=== PATIENT | male | born 1945 | race Caucasian/White ===

== ENCOUNTER → 2016-06-09 | Outpatient (CLI) | payer MEDICARE, OTHER ==
[2016-06-09 08:55] LABS: ABSOLUTE BASOPHILS # (AUTO) 0.1 10^3/uL (0.0-0.2); ABSOLUTE EOSINOPHILS # (AUTO) 0.3 10^3/uL (0.0-0.6); ABSOLUTE LYMPHOCYTES (AUTO) 1.1 10^3/uL (0.5-4.7); ABSOLUTE MONOCYTES (AUTO) 0.3 10^3/uL (0.1-1.4); ABSOLUTE NEUT (AUTO) 3.1 10^3/uL (1.7-8.2); BASOPHILS % (AUTO) 1.1 % (0-2); EOSINOPHILS % (AUTO) 6.5 % (0-6); HEMATOCRIT 35.2 % (37.9-51.0); HEMOGLOBIN 12.1 g/dL (13.5-17.0); HGB HCT DIFFERENCE 1.1; LYMPHOCYTES % (AUTO) 23.1 % (13-45); MEAN CORPUSCULAR HEMOGLOBIN 26.8 pg (27.0-33.4); MEAN CORPUSCULAR HGB CONC 34.5 g/dL (32.0-36.0); MEAN CORPUSCULAR VOLUME 78 fl (80-97); MONOCYTES % (AUTO) 5.3 % (3-13); RED BLOOD COUNT 4.52 10^6/uL (4.35-5.55); RED CELL DISTRIBUTION WIDTH 15.1 % (11.5-14.0); WHITE BLOOD COUNT 4.8 10^3/uL (4.0-10.5)
[2016-06-09 09:24] LABS: ANION GAP 14 (5-19); BLOOD UREA NITROGEN 17 mg/dL (7-20); CARBON DIOXIDE 29 mmol/L (22-30); CHLORIDE 99 mmol/L (98-107); CREATININE RESULT 1.72 mg/dL (0.52-1.25); GLUCOSE 214 mg/dL (75-110); POTASSIUM 3.9 mmol/L (3.6-5.0); SODIUM 141.5 mmol/L (137-145)
[2016-06-10 12:38] LABS: CREATININE URINE 90.6 mg/dL (Not Estab.); MICROALBUMIN URINE 247.7 ug/mL (Not Estab.)
== END ==
LOC: OD 07:56
PROVIDERS: ATTEND Internal Medicine Nephrology
DX: N18.3 Chronic kidney disease, stage 3 (moderate) (principal); R80.9 Proteinuria, unspecified; E55.9 Vitamin D deficiency, unspecified; D50.9 Iron deficiency anemia, unspecified
CPT/HCPCS: 36415; 80048; 82043; 82306; 82570; 82728; 83540; 83550; 85025

== ENCOUNTER 2016-08-30 18:58 | Emergency (ER) | payer MEDICARE, OTHER ==
--- NOTE | 2016-08-30 19:40 | ER Document Report ---
ED Neuro Symptoms/Deficit - General Chief Complaint: S/S of Possible Stroke Stated Complaint: POSSIBLE STROKE Time seen by provider: 19:30 Notes: Patient is a 70-year-old male that comes emergency department for chief complaint of possible strokelike symptoms. He states that 1830 for a few minutes he states he felt like he was having confusion like something was off, he states that he tried reciting the alphabet and got stuck when he reached D, he states he tried this several times with the same result. He denies any focal weakness or numbness, he denies any visual changes, he denies any other symptoms including chest pain, shortness of breath, dizziness, fever, pain. He states that after several minutes the sensation resolved and he started feeling normal again. Patient reports he had a stroke 10 years ago with no chronic deficits. Past medical history of type II diabetes, hyperlipidemia, hypertension. Patient is not on a blood thinner. TRAVEL OUTSIDE OF THE [place] IN LAST 30 DAYS: No - Related Data Allergies/Adverse Reactions: cyclobenzaprine HCl [From Flexeril] Allergy (Verified 09/14/15 08:56) angio edema Zoavxrv-Xdb-Ydi Reductase Inhibitor Allergy (Verified 09/14/15 08:56) intense muscle pain Sulfa (Sulfonamide Antibiotics) Allergy (Verified 09/14/15 08:56) rash Past Medical History - General Information source: Patient - Social History Smoking Status: Never Smoker Frequency of alcohol use: None Lives with: Alone Family History: Reviewed & Not Pertinent Patient has suicidal ideation: No Patient has homicidal ideation: No - Past Medical History Cardiac Medical History: Reports: Hx Hypercholesterolemia, Hx Hypertension Denies: Hx Coronary Artery Disease, Hx Heart Attack Pulmonary Medical History: Denies: Hx Asthma, Hx Bronchitis, Hx COPD, Hx Pneumonia Neurological Medical History: Denies: Hx Cerebrovascular Accident, Hx Seizures Endocrine Medical History: Reports: Hx Diabetes Mellitus Type 2 Renal/ Medical History: Reports: Hx Kidney Stones. Denies: Hx Peritoneal Dialysis GI Medical History: Denies: Hx Hepatitis, Hx Hiatal Hernia, Hx Ulcer Musculoskeltal Medical History: Reports Hx Arthritis Infectious Medical History: Denies: Hx Hepatitis Past Surgical History: Reports: Hx Orthopedic Surgery, Hx Tonsillectomy. Denies : Hx Open Heart Surgery, Hx Pacemaker - Immunizations Hx Diphtheria, Pertussis, Tetanus Vaccination: Yes Hx Pneumococcal Vaccination: 01/31/15 Review of Systems - Review of Systems Constitutional: No symptoms reported EENT: No symptoms reported Cardiovascular: No symptoms reported Respiratory: No symptoms reported Gastrointestinal: No symptoms reported Genitourinary: No symptoms reported Male Genitourinary: No symptoms reported Musculoskeletal: No symptoms reported Skin: No symptoms reported Hematologic/Lymphatic: No symptoms reported Neurological/Psychological: See HPI Physical Exam - Vital signs Vitals: Temp Pulse Resp BP Pulse Ox 98.6 F 83 21 H 174/75 H 97 08/30/16 19:13 08/30/16 19:13 08/30/16 19:13 08/30/16 19:13 08/30/16 19:13 Interpretation: Normal - General General appearance: Appears well, Alert In distress: None - HEENT Head: Normocephalic, Atraumatic Eyes: Normal Conjunctiva: Normal Extraocular movements intact: Yes Eyelashes: Normal Pupils: PERRL Sinus: Normal Nasal: Normal Mouth/Lips: Normal Mucous membranes: Normal Pharynx: Normal Neck: Normal - Respiratory Respiratory status: No respiratory distress Chest status: Nontender Breath sounds: Normal Chest palpation: Normal - Cardiovascular Rhythm: Regular. No: Tachycardia Heart sounds: Normal auscultation, S1 appreciated, S2 appreciated Murmur: Yes - 05/08 - Abdominal Inspection: Normal Distension: No distension Bowel sounds: Normal Tenderness: Nontender. No: Tender, Guarding Organomegaly: No organomegaly - Back Back: Normal, Nontender. No: Tender - Extremities General upper extremity: Normal inspection, Nontender, Normal strength, Normal temperature General lower extremity: Normal inspection, Nontender, Normal strength, Normal temperature - Neurological Neuro grossly intact: Yes Cognition: Normal Orientation: AAOx4 [place] Coma Scale Eye Opening: Spontaneous Josiah Coma Scale Verbal: Oriented Josiah Coma Scale Motor: Obeys Commands Josiah Coma Scale Total: 15 Speech: Normal Motor strength normal: LUE, RUE, LLE, RLE Sensory: Normal - Psychological Associated symptoms: Normal affect, Normal mood - Skin Skin Temperature: Warm Skin Moisture: Dry Skin Color: Normal Course - Re-evaluation Re-evalutation: Patient presenting with neurological complaints that are vague, symptoms have completely resolved, CT of the head is normal in patient is within the timeframe but since he has no current symptoms he is not a TPA candidate. 08/30/16 EKG shows sinus rhythm with no atrial fibrillation. Chest x-ray, CAT scan unremarkable. CBC showing mild microcytic anemia, chemistry approximately baseline with chronic kidney disease. On reevaluation patient remains asymptomatic. I questioned patient about what he was doing again when symptoms started, he admits that he now thinks that he had fallen asleep, he murmurs being startled awake by light bulb that went out, and when he first awoke for the first few seconds" which felt longer but honestly might have been seconds" he felt these were very, strength sensation, and had the difficulty with the alphabet. Patient repeats that this resolved at least within minutes. Patient denies any other symptoms family and states he is sure this time that he has given me all of the information. Low suspicion of any acute abnormality including TIA. Even if patient had TIA, he is requesting to leave now after normal workup, he are he has a scheduled appointment within 2 days on Wednesday with his primary care provider, I asked him to discuss his symptoms to be included in his evaluations at that time. I also discussed in detail return precautions. Patient was discussed with Dr. Marquez. Patient states that he is calm now, feels relieved about the whole situation, states he understands return precautions and follow-up. - Vital Signs Vital signs: Temp Pulse Resp BP Pulse Ox 98.6 F 83 21 H 174/75 H 97 08/30/16 19:13 08/30/16 19:13 08/30/16 19:13 08/30/16 19:13 08/30/16 19:13 - Laboratory Result Diagrams: 08/30/16 19:40 08/30/16 19:40 ED NIH Stroke Scale - NIH Stroke Scale *: 1. NIH scale should be completed with appropriate accompanying assessment tools. *: 2. The NIH should reflect what the patient is capable of doing and should not be coached by the clinician. 1a. Level of Consciousness: 0=Alert;keenly responsive -: 1=Drowsy -: 2=Obtunded -: 3=Coma/unresponsive or reflex to noxious stimuli. 1a. Responses: 0 1b. Orientation Questions: a. What month is it? -: b. How old are you? -: 0=Answers both questions correctly. -: 1=Answers one question correctly or patient is intubated or has orotracheal trauma. -: 2=Answers neither question correctly. 1b. Responses: 0 1c. Response to commands: a. Open and close eyes? -: b. Truck Mechanic and release hand? -: Credit is given despite weakness. Demonstration of task is permitted. Substitute command if hands cannot be used. -: 0=Performs both tasks correctly -: 1=Performs one task correctly -: 2=Performs neither task correctly 1c. Responses: 0 2. Gaze: Establish eye contact and instruct patient to "Follow my finger" -: 0=Normal -: 1=Partial gaze palsy. Gaze is abnormal in one or both eyes, but where forced deviation or total gaze paresis is not present. -: 2=Forced deviation or total gaze paresis. 2. Responses: 0 3. Visual Wild: Sees fingers in all four quadrants. -: 0=No visual loss. -: 1=Partial hemianopsia. -: 2=Complete hemianopsia. -: 3=Bilateral hemianopsia (including Cortical blindness) 3. Responses: 0 4. Facial Movement: Instruct patient to: -: a. Show me your teeth -: b. Raise your eyebrows -: c. Close your eyes -: d. Smile -: 0=Normal symmetrical movement -: 1=Minor paralysis (flattened nasolabial fold, asymmetry on smiling). -: 2=Partial paralysis (total or near total paralysis of lower face). -: 3=Complete paralysis of upper and lower face 4. Responses: 0 5. Motor functions (left arm): Alternate sides and extend each arm with palms down (90 degrees if sitting or 45 degrees for supine). -: 0=No drift;limb holds for full 10 seconds. -: 1=Drift; limb holds but drifts down before full 10 seconds, but does not hit bed. -: 2=Some effort against gravity; limb cannot get to or maintain position. -: 3=No effort against gravity; limb falls. -: 4=No movement. -: UN=Amputation, joint fusion, explain in comments. 5. Responses (left arm): 0 5. Motor Functions (right arm): Alternate sides and extend each arm with palms down (90 degrees if sitting or 45 degrees for supine). -: 0=No drift;limb holds for full 10 seconds. -: 1=Drift; limb holds but drifts down before full 10 seconds, but does not hit bed. -: 2=Some effort against gravity; limb cannot get to or maintain position. -: 3=No effort against gravity; limb falls. -: 4=No movement. -: UN=Amputation, joint fusion, explain in comments. 5. Responses (right arm): 0 6. Motor Functions (left leg): With patient lying supine, alternate sides and extend each leg (30 degrees always while supine). -: 0=No drift, leg holds position for full 5 seconds -: 1=Drift; leg falls before full 5 seconds but does not hit bed. -: 2=Some effort against gravity, leg falls to bed but some effort against gravity. -: 3=No effort against gravity, leg falls to bed immediately. -: 4=No movement. -: UN=Amputation, joint fusion; explain in comments. 6. Responses (left leg): 0 6. Motor Functions (right leg): With patient lying supine, alternate sides and extend each leg (30 degrees always while supine). -: 0=No drift, leg holds position for full 5 seconds -: 1=Drift; leg falls before full 5 seconds but does not hit bed. -: 2=Some effort against gravity, leg falls to bed but some effort against gravity. -: 3=No effort against gravity, leg falls to bed immediately. -: 4=No movement. -: UN=Amputation, joint fusion; explain in comments. 6. Responses (right leg): 0 7. Limb Ataxia: With eyes open instruct patient to: -: a. "Touch your finger to your nose". -: b. "Touch your heel to your panda" -: 0=Absent -: 1=Present in one limb. -: 2=Present in two limbs. -: UN=Amputation or joint fusion; explain in comments. 7. Responses: 0 8. Sensory: Test sensation using pinprick or noxious stimuli. Test as many body parts as possible. -: 0=Normal;no sensory loss -: 1=Mile to moderate sensory loss (patient feels pin prick but is less sharp on affected side). -: 2=Severe or total sensory loss. 8. Responses: 0 9. Best Language: Instruct patient to: -: a. "Describe what you see in this picture." -: b. "Name the items in this picture." -: c. "Read these sentences." -: 0=No aphasia, normal -: 1=Mild to moderate aphasia. -: 2=Severe aphasia -: 3=Mute, global aphasia, no usable speech or auditory comprehension. 9. Responses: 0 10. Articulation, Dysarthia: Instruct patient to: -: "Read these words" or "Repeat these words" -: 0=Normal -: 1=Mild to moderate; patient may slur some words but can be understood without difficulty. -: 2=Severe; patients speech so slurred as to be unintelligible in the absence of dysphasia. -: UN=Intubated or other physical barrier, explain in comments. 10. Responses: 0 11. Extinction or inattention: 0=No abnormality -: 1= Visual, tactile, auditory, spatial, or personal inattention or extinction to bilateral simulation in one or the sensory modalities. -: 2=Profound lucita-inattention or lucita-inattention to more than one modality; does not recognize own hand. 11. Responses: 0 Total Score: 0 Discharge - Discharge Clinical Impression: Difficulty with speech Condition: Stable Disposition: HOME, SELF-CARE Additional Instructions: Symptoms are vague, occurred immediately upon awakening, and resolved almost immediately. This is nonspecific. Your examination and workup including neurological examination are normal. Continue aspirin, please perform your 2 day follow-up with her primary care provider for additional management. Return to the emergency department for any concerning symptoms including weakness, numbness, headache, chest pain, or any other concerning symptoms. Forms: Elevated Blood Pressure Referrals: DONAL HAGEN MD [Primary Care Provider] - Follow up as needed
[2016-08-30 19:53] LABS: ABSOLUTE BASOPHILS # (AUTO) 0.1 10^3/uL (0.0-0.2); ABSOLUTE EOSINOPHILS # (AUTO) 0.3 10^3/uL (0.0-0.6); ABSOLUTE LYMPHOCYTES (AUTO) 1.3 10^3/uL (0.5-4.7); ABSOLUTE MONOCYTES (AUTO) 0.2 10^3/uL (0.1-1.4); ABSOLUTE NEUT (AUTO) 3.3 10^3/uL (1.7-8.2); BASOPHILS % (AUTO) 1.1 % (0-2); EOSINOPHILS % (AUTO) 5.2 % (0-6); HEMATOCRIT 37.5 % (37.9-51.0); HEMOGLOBIN 12.9 g/dL (13.5-17.0); HGB HCT DIFFERENCE 1.2; LYMPHOCYTES % (AUTO) 25.6 % (13-45); MEAN CORPUSCULAR HEMOGLOBIN 26.7 pg (27.0-33.4); MEAN CORPUSCULAR HGB CONC 34.4 g/dL (32.0-36.0); MEAN CORPUSCULAR VOLUME 78 fl (80-97); MONOCYTES % (AUTO) 4.3 % (3-13); RED BLOOD COUNT 4.84 10^6/uL (4.35-5.55); SEGMENTED NEUTROPHILS % (AUTO) 63.8 % (42-78); WHITE BLOOD COUNT 5.2 10^3/uL (4.0-10.5)
[2016-08-30 20:02] LABS: PROTHROMBIN TIME 14.2 SEC (11.4-15.4)
[2016-08-30 20:15] LABS: ALANINE AMINOTRANSFERASE 43 U/L (21-72); ALBUMIN 4.4 g/dL (3.5-5.0); ALKALINE PHOSPHATASE 79 U/L (38-126); ANION GAP 16 (5-19); ASPARTATE AMINO TRANSFERASE 46 U/L (17-59); BILIRUBIN,DIRECT 0.4 mg/dL (0.0-0.4); BILIRUBIN,TOTAL 0.6 mg/dL (0.2-1.3); BLOOD UREA NITROGEN 15 mg/dL (7-20); CALCIUM 9.8 mg/dL (8.4-10.2); CARBON DIOXIDE 28 mmol/L (22-30); CHLORIDE 100 mmol/L (98-107); CREATINE KINASE 188 U/L (55-170); CREATININE RESULT 2.11 mg/dL (0.52-1.25); GLUCOSE 226 mg/dL (75-110); POTASSIUM 3.4 mmol/L (3.6-5.0); SODIUM 143.6 mmol/L (137-145); TOTAL PROTEIN 7.7 g/dL (6.3-8.2)
[2016-08-30 20:30] LABS: TROPONIN I < 0.012 ng/mL
[2016-08-30 21:17] VITALS: BP 146/80
--- NOTE | 2016-08-30 22:51 | EKG REPORT ---
SEVERITY:- ABNORMAL ECG - SINUS RHYTHM FIRST DEGREE AV BLOCK NONSPECIFIC INTRAVENTRICULAR CONDUCTION DELAY LVH : Confirmed by: Ramona Rogers 30-Aug-2016 22:50:21
== END 2016-08-30 21:19 | disposition home or self-care (01) ==
LOC: ER 18:58
DX: R47.9 Unspecified speech disturbances (principal); R41.0 Disorientation, unspecified; E11.9 Type 2 diabetes mellitus without complications; E78.00 Pure hypercholesterolemia, unspecified; I10 Essential (primary) hypertension; Z88.2 Allergy status to sulfonamides; Z87.442 Personal history of urinary calculi
CPT/HCPCS: 36415; 70450; 71010; 80053; 82550; 82553; 84484; 85025; 85610; 85730; 93005; 93010; 99285

== ENCOUNTER → 2016-10-07 | Outpatient (CLI) | payer MEDICARE, OTHER ==
[2016-10-07 08:05] LABS: ABSOLUTE BASOPHILS # (AUTO) 0.1 10^3/uL (0.0-0.2); ABSOLUTE EOSINOPHILS # (AUTO) 0.3 10^3/uL (0.0-0.6); ABSOLUTE LYMPHOCYTES (AUTO) 1.2 10^3/uL (0.5-4.7); ABSOLUTE MONOCYTES (AUTO) 0.2 10^3/uL (0.1-1.4); ABSOLUTE NEUT (AUTO) 3.2 10^3/uL (1.7-8.2); BASOPHILS % (AUTO) 1.3 % (0-2); HEMOGLOBIN 12.5 g/dL (13.5-17.0); HGB HCT DIFFERENCE 0.5; LYMPHOCYTES % (AUTO) 23.6 % (13-45); MEAN CORPUSCULAR HEMOGLOBIN 26.1 pg (27.0-33.4); MEAN CORPUSCULAR HGB CONC 33.8 g/dL (32.0-36.0); MEAN CORPUSCULAR VOLUME 77 fl (80-97); MONOCYTES % (AUTO) 4.9 % (3-13); RED BLOOD COUNT 4.79 10^6/uL (4.35-5.55); RED CELL DISTRIBUTION WIDTH 13.9 % (11.5-14.0); SEGMENTED NEUTROPHILS % (AUTO) 64.2 % (42-78); WHITE BLOOD COUNT 4.9 10^3/uL (4.0-10.5)
[2016-10-07 08:39] LABS: ANION GAP 12 (5-19); BLOOD UREA NITROGEN 13 mg/dL (7-20); CALCIUM 9.4 mg/dL (8.4-10.2); CARBON DIOXIDE 28 mmol/L (22-30); CHLORIDE 102 mmol/L (98-107); CREATININE RESULT 1.92 mg/dL (0.52-1.25); GLUCOSE 214 mg/dL (75-110); POTASSIUM 4.2 mmol/L (3.6-5.0)
[2016-10-08 11:40] LABS: CREATININE URINE 176.1 mg/dL (Not Estab.); MICROALBUMIN URINE 378.7 ug/mL (Not Estab.)
== END ==
LOC: OD 07:28
PROVIDERS: ATTEND Internal Medicine Nephrology
DX: N18.3 Chronic kidney disease, stage 3 (moderate) (principal); R80.1 Persistent proteinuria, unspecified; D63.1 Anemia in chronic kidney disease
CPT/HCPCS: 36415; 80048; 82043; 82570; 85025

== ENCOUNTER → 2017-02-08 | Outpatient (CLI) | payer MEDICARE, OTHER ==
[2017-02-08 08:43] LABS: ABSOLUTE BASOPHILS # (AUTO) 0.1 10^3/uL (0.0-0.2); ABSOLUTE EOSINOPHILS # (AUTO) 0.3 10^3/uL (0.0-0.6); ABSOLUTE LYMPHOCYTES (AUTO) 1.3 10^3/uL (0.5-4.7); ABSOLUTE MONOCYTES (AUTO) 0.3 10^3/uL (0.1-1.4); ABSOLUTE NEUT (AUTO) 3.5 10^3/uL (1.7-8.2); BASOPHILS % (AUTO) 1.1 % (0-2); EOSINOPHILS % (AUTO) 5.5 % (0-6); HEMATOCRIT 34.9 % (37.9-51.0); HEMOGLOBIN 12.3 g/dL (13.5-17.0); LYMPHOCYTES % (AUTO) 24.4 % (13-45); MEAN CORPUSCULAR HEMOGLOBIN 27.5 pg (27.0-33.4); MEAN CORPUSCULAR HGB CONC 35.2 g/dL (32.0-36.0); MEAN CORPUSCULAR VOLUME 78 fl (80-97); MONOCYTES % (AUTO) 4.6 % (3-13); RED BLOOD COUNT 4.45 10^6/uL (4.35-5.55); SEGMENTED NEUTROPHILS % (AUTO) 64.4 % (42-78); WHITE BLOOD COUNT 5.5 10^3/uL (4.0-10.5)
[2017-02-08 08:58] LABS: APPEARANCE,URINE CLEAR; BILIRUBIN,URINE NEGATIVE (NEGATIVE); GLUCOSE, URINE NEGATIVE (NEGATIVE); KETONES,URINE NEGATIVE (NEGATIVE); LEUKOCYTE ESTERASE,URINE NEGATIVE (NEGATIVE); NITRITE,URINE NEGATIVE (NEGATIVE); PROTEIN,URINE 100 mg/dL (NEGATIVE); URINE SPECIFIC GRAVITY 1.009; UROBILINOGEN,URINE NEGATIVE mg/dL (<2.0)
[2017-02-08 09:01] LABS: ALBUMIN 4.1 g/dL (3.5-5.0); ANION GAP 13 (5-19); BLOOD UREA NITROGEN 10 mg/dL (7-20); CALCIUM 9.5 mg/dL (8.4-10.2); CARBON DIOXIDE 30 mmol/L (22-30); CHLORIDE 103 mmol/L (98-107); CREATININE RESULT 1.75 mg/dL (0.52-1.25); GLUCOSE 144 mg/dL (75-110); POTASSIUM 3.4 mmol/L (3.6-5.0); SODIUM 146.1 mmol/L (137-145)
[2017-02-09 07:33] LABS: VITAMIN D 25-HYDROXY 19.5 ng/mL (30.0-100.0)
[2017-02-09 11:49] LABS: MICROALBUMIN URINE 535.6 ug/mL (Not Estab.)
== END ==
LOC: OD 07:53
PROVIDERS: ATTEND Internal Medicine Nephrology
DX: N18.3 Chronic kidney disease, stage 3 (moderate) (principal); R80.9 Proteinuria, unspecified; E55.9 Vitamin D deficiency, unspecified; D50.9 Iron deficiency anemia, unspecified
CPT/HCPCS: 36415; 80048; 81001; 82040; 82043; 82306; 82570; 82728; 83540; 83550; 83970; 84100; 85025

== ENCOUNTER 2017-04-20 07:15 | Day surgery (SDC) | payer MEDICARE, OTHER ==
[~2017-04-20 07:15] MED LIST: BUPIVACAINE HCL 0.75% INJ/PF (7.5 MG/1 ML) 10 ML SDV OD PRN; KETOROLAC TROMETHAMINE 0.45% 4 DROP/0.4 ML DROPERETTE OD PRN; LIDOCAINE 4% INJ/PF (40 MG/ML) 5 ML AMPUL OD PRN
[2017-04-20] MEDS ORDERED: CHONDR SU A NA/HYALUR INTRAOC KIT (SURGICARE) ONE (07:29)
[2017-04-20] MEDS ORDERED: PHENYLEPHRINE/KETOROLAC 1%-0.3% 4 ML VIAL ONE (07:29)
[2017-04-20] MEDS ORDERED: LIDOCAINE 1% INJ-PF (10 MG/ML) 30 ML SDV ONE (07:29)
[2017-04-20] MEDS: TETRACAINE HCL 0.5% OPH SOLN 0.6 ML DROPERETTE OD PRN ×2 (07:50→08:17)
[2017-04-20] MEDS: CYCLOPENTOLATE 0.2%/PHENYLEPHRINE 1% OPH SOLN 2 ML OD PRN ×3 (07:51→08:12)
[2017-04-20] MEDS: TROPICAMIDE 1% OPH SOLN 3 ML OD PRN ×3 (07:51→08:12)
[2017-04-20] MEDS: BESIFLOXACIN HCL 0.6% OPH SUSP 5 ML BOTTLE OD PRN ×3 (07:53→09:01)
[2017-04-20] MEDS ORDERED: FENTANYL CITRATE INJ/PF 100 MCG/2 ML AMPUL ONE (08:16)
[2017-04-20] MEDS ORDERED: MIDAZOLAM 2 MG/2 ML INJ ONE (08:16)
--- NOTE | 2017-04-20 09:11 | [facility] OPERATIVE REPORT E ---
[facility] Operative Report NAME: JARED NEGRETE AGE: 71Y DATE OF SURGERY: 04/20/2017 ROOM: PREOPERATIVE DIAGNOSIS: Cataract, right eye. POSTOPERATIVE DIAGNOSIS: Cataract, right eye. PROCEDURE PERFORMED: Phacoemulsification with posterior chamber intraocular lens, right eye. SURGEON: JEFF WOOTEN M.D. ANESTHESIA: Topical with MAC. INDICATIONS FOR SURGERY: Difficulty reading road signs and words on TV. Best corrected visual acuity 20/50. PROCEDURE: The patient was brought to the Operating Room and placed on the operative table. Following tetracaine drops, topical anesthesia was administered. This consisted of instrument wipe pledgets soaked in a solution of 4% Xylocaine mixed with 0.75% Marcaine in a 1:2 ratio. A 2 x 1 cm pledget was placed in the superior fornix. A 1 x 1 cm pledget was placed in the inferior fornix. The eye was patched shut for 5 minutes. The patch was removed. The eye was sterilely prepped and draped in the usual manner. Lid speculum was placed in the eye. The pledgets were removed. 4-0 black silk sutures were placed around the superior and the inferior rectus muscles to be used as traction. A conjunctival peritomy was made at the 10 o'clock position. Hemostasis was obtained with bipolar cautery. A posterior limbal groove was created using a crescent knife and dissected anteriorly towards the cornea. A sharp point blade was used to create a paracentesis site at the 2 o'clock position. A 2.4 mm keratome was used to enter the anterior chamber through the groove. Viscoelastic was injected into the anterior chamber. An anterior capsulotomy was performed using Utrata forceps in a capsulorrhexis fashion. Hydrodissection and hydrodelineation were performed. Phacoemulsification was performed in [id number] technique. A total of 56 seconds phaco time was used. Following this, the I/A unit was used to remove residual cortex. Viscoelastic was injected into the capsular bag. Intraocular lens model SN60WF, 20.0 diopters, serial number [id number] was placed in the capsular bag. The I/A unit was used to remove residual viscoelastic. The wound was seen to be watertight under high and low pressure, and no sutures were placed. The intraocular lens was well centered. The pressure was adjusted in the eye to normal pressure. The 4-0 black silk sutures and lid speculum were removed. The eye was shielded after Besivance drops were placed. The patient tolerated the procedure well and was sent to the Recovery Room in good condition. DICTATING PHYSICIAN: JEFF WOOTEN M.D. [id number] PHY#: [id number] ID: [id number] JOB#: [id number] ACCT: [id number] cc:JEFF WOOTEN M.D. >
--- NOTE | 2017-04-20 09:13 | [facility] DISCHARGE SUMMARY E ---
[facility] Discharge Summary NAME: JARED NEGRETE AGE: 71Y ADMITTED: 04/20/2017 DISCHARGED: 04/20/2017 HOSPITAL COURSE: The patient is a 71-year-old gentleman who underwent uneventful cataract extraction with intraocular lens implant, right eye, on 04/20/2017. He will be discharged to home. He is instructed to resume preoperative medications, take Tylenol as needed for discomfort, to keep his eye shielded, to use Besivance, Durezol, and Ilevro at 3 p.m. and 8 p.m., and to follow up in my office in 1 day. DICTATING PHYSICIAN: JEFF WOOTEN M.D. [id number] PHY#: [id number] ID: [id number] JOB#: [id number] ACCT: [id number] cc:JEFF WOOTEN M.D. >
== END 2017-04-20 09:48 | disposition home or self-care (01) ==
LOC: SC 07:15
PROVIDERS: ATTEND Ophthalmology
PROC: 08RJ3JZ Replacement of Right Lens with Synthetic Substitute, Percutaneous Approach (ICD-10-PCS; principal; 2017-04-20 08:30)
DX: H25.813 Combined forms of age-related cataract, bilateral (principal); H04.123 Dry eye syndrome of bilateral lacrimal glands; E11.9 Type 2 diabetes mellitus without complications; I10 Essential (primary) hypertension; M19.90 Unspecified osteoarthritis, unspecified site; M10.9 Gout, unspecified; N40.0 Benign prostatic hyperplasia without lower urinary tract symptoms; D64.9 Anemia, unspecified; K21.9 Gastro-esophageal reflux disease without esophagitis; Z86.73 Personal history of transient ischemic attack (TIA), and cerebral infarction without residual deficits; Z87.891 Personal history of nicotine dependence; Z85.828 Personal history of other malignant neoplasm of skin; Z88.2 Allergy status to sulfonamides; Z88.8 Allergy status to other drugs, medicaments and biological substances; Z79.899 Other long term (current) drug therapy; Z79.84 Long term (current) use of oral hypoglycemic drugs; Z79.4 Long term (current) use of insulin
CPT/HCPCS: 66984; 82962; V2632; J2250; J3490 ×4; A9270; J3010; C9447; 142

== ENCOUNTER → 2017-06-14 | Outpatient (CLI) | payer MEDICARE, OTHER ==
[2017-06-14 09:03] LABS: ABSOLUTE BASOPHILS # (AUTO) 0.1 10^3/uL (0.0-0.2); ABSOLUTE EOSINOPHILS # (AUTO) 0.4 10^3/uL (0.0-0.6); ABSOLUTE LYMPHOCYTES (AUTO) 1.4 10^3/uL (0.5-4.7); ABSOLUTE MONOCYTES (AUTO) 0.3 10^3/uL (0.1-1.4); ABSOLUTE NEUT (AUTO) 3.2 10^3/uL (1.7-8.2); BASOPHILS % (AUTO) 1.2 % (0-2); EOSINOPHILS % (AUTO) 7.1 % (0-6); HEMATOCRIT 34.1 % (37.9-51.0); LYMPHOCYTES % (AUTO) 25.7 % (13-45); MEAN CORPUSCULAR HEMOGLOBIN 27.3 pg (27.0-33.4); MEAN CORPUSCULAR HGB CONC 35.3 g/dL (32.0-36.0); MEAN CORPUSCULAR VOLUME 78 fl (80-97); MONOCYTES % (AUTO) 5.2 % (3-13); PLATELET COUNT 183 10^3/uL (150-450); RED BLOOD COUNT 4.39 10^6/uL (4.35-5.55); RED CELL DISTRIBUTION WIDTH 14.2 % (11.5-14.0); SEGMENTED NEUTROPHILS % (AUTO) 60.8 % (42-78); TOTAL CELLS COUNTED % (AUTO) 100 %; WHITE BLOOD COUNT 5.3 10^3/uL (4.0-10.5)
[2017-06-14 09:21] LABS: ANION GAP 9 (5-19); BLOOD UREA NITROGEN 10 mg/dL (7-20); CALCIUM 9.6 mg/dL (8.4-10.2); CARBON DIOXIDE 32 mmol/L (22-30); CHLORIDE 102 mmol/L (98-107); GLUCOSE 142 mg/dL (75-110); IRON(TIBC) 71.3 ug/dL (49-181); SODIUM 142.6 mmol/L (137-145)
[2017-06-15 13:39] LABS: CREATININE URINE 71.9 mg/dL (Not Estab.)
[2017-06-15 13:59] LABS: MICROALBUMIN URINE 1959.2 ug/mL (Not Estab.)
== END ==
LOC: OD 08:11
PROVIDERS: ATTEND Internal Medicine Nephrology
DX: N18.3 Chronic kidney disease, stage 3 (moderate) (principal); E11.29 Type 2 diabetes mellitus with other diabetic kidney complication; D50.9 Iron deficiency anemia, unspecified; E55.9 Vitamin D deficiency, unspecified
CPT/HCPCS: 36415; 80048; 82043; 82306; 82570; 82728; 83540; 83550; 85025

== ENCOUNTER → 2017-09-14 | Outpatient (CLI) | payer MEDICARE, OTHER ==
[2017-09-14 08:33] LABS: ABSOLUTE BASOPHILS # (AUTO) 0.1 10^3/uL (0.0-0.2); ABSOLUTE EOSINOPHILS # (AUTO) 0.4 10^3/uL (0.0-0.6); ABSOLUTE LYMPHOCYTES (AUTO) 1.3 10^3/uL (0.5-4.7); ABSOLUTE MONOCYTES (AUTO) 0.2 10^3/uL (0.1-1.4); ABSOLUTE NEUT (AUTO) 3.7 10^3/uL (1.7-8.2); BASOPHILS % (AUTO) 1.2 % (0-2); EOSINOPHILS % (AUTO) 6.3 % (0-6); HEMATOCRIT 33.4 % (37.9-51.0); HEMOGLOBIN 11.7 g/dL (13.5-17.0); LYMPHOCYTES % (AUTO) 22.4 % (13-45); MEAN CORPUSCULAR HEMOGLOBIN 26.9 pg (27.0-33.4); MEAN CORPUSCULAR HGB CONC 34.9 g/dL (32.0-36.0); MEAN CORPUSCULAR VOLUME 77 fl (80-97); MONOCYTES % (AUTO) 4.4 % (3-13); PLATELET COUNT 193 10^3/uL (150-450); RED BLOOD COUNT 4.35 10^6/uL (4.35-5.55); RED CELL DISTRIBUTION WIDTH 13.7 % (11.5-14.0); SEGMENTED NEUTROPHILS % (AUTO) 65.7 % (42-78); TOTAL CELLS COUNTED % (AUTO) 100 %; WHITE BLOOD COUNT 5.7 10^3/uL (4.0-10.5)
[2017-09-14 08:59] LABS: ALBUMIN 3.4 g/dL (3.5-5.0); ANION GAP 10 (5-19); BLOOD UREA NITROGEN 10 mg/dL (7-20); CALCIUM 8.9 mg/dL (8.4-10.2); CARBON DIOXIDE 32 mmol/L (22-30); CHLORIDE 103 mmol/L (98-107); GLUCOSE 110 mg/dL (75-110); PHOSPHORUS 3.8 mg/dL (2.5-4.5); POTASSIUM 3.7 mmol/L (3.6-5.0); SODIUM 145.2 mmol/L (137-145)
[2017-09-14 09:05] LABS: APPEARANCE,URINE CLEAR; BILIRUBIN,URINE NEGATIVE (NEGATIVE); COLOR,URINE YELLOW; GLUCOSE, URINE NEGATIVE (NEGATIVE); KETONES,URINE NEGATIVE (NEGATIVE); LEUKOCYTE ESTERASE,URINE NEGATIVE (NEGATIVE); NITRITE,URINE NEGATIVE (NEGATIVE); PROTEIN,URINE >=500 mg/dL (NEGATIVE); URINE SPECIFIC GRAVITY 1.012; UROBILINOGEN,URINE NEGATIVE mg/dL (<2.0)
[2017-09-15 14:41] LABS: CREATININE URINE 126.9 mg/dL (Not Estab.)
== END ==
LOC: OD 07:41
PROVIDERS: ATTEND Internal Medicine Nephrology
DX: N18.3 Chronic kidney disease, stage 3 (moderate) (principal); R80.9 Proteinuria, unspecified; E55.9 Vitamin D deficiency, unspecified; D63.1 Anemia in chronic kidney disease
CPT/HCPCS: 36415; 80048; 81001; 82040; 82043; 82306; 82570; 83970; 84100; 85025

== ENCOUNTER 2017-10-20 11:45 | Observation (INO) | payer MEDICARE, OTHER ==
--- NOTE | 2017-10-20 12:11 | RADIOLOGY REPORT (SQ) ---
EXAM DESCRIPTION: CT HEAD WITHOUT COMPLETED DATE/TIME: 10/20/2017 12:01 pm REASON FOR STUDY: alt mental status COMPARISON: CT brain 08/30/2016 TECHNIQUE: Axial images acquired through the brain without intravenous contrast. Images reviewed wi th bone, brain and subdural windows. Additional sagittal and coronal reconstructions were generated. Images stored on PACS. All CT scanners at this facility use dose modulation, iterative reconstruction, and/or weight based d osing when appropriate to reduce radiation dose to as low as reasonably achievable (ALARA). [facility]: Dose Right [facility]: CareDose [facility]: Dose Right [facility]: Teradose 4D [facility]: [employer] RADIATION DOSE: CT Rad equipment meets quality standard of care and radiation dose reduction techniq ues were employed. CTDIvol: 53.2 mGy. DLP: 1044 mGy-cm. mGy. LIMITATIONS: None. FINDINGS: VENTRICLES: Normal size and contour. CEREBRUM: No CT evidence of acute large territory ischemic change, acute intracranial hemorrhage, mas s effect, or midline shift. Extensive low attenuation in the bifrontal and biparietal hemispheric whi te matter likely chronic small vessel ischemic change. CEREBELLUM: No masses. No hemorrhage. No alteration of density. No evidence for acute infarction. EXTRAAXIAL SPACES: No fluid collections. No masses. ORBITS AND GLOBE: No intra- or extraconal masses. Old right cataract surgery. CALVARIUM: No fracture. PARANASAL SINUSES: Mucous membrane thickening bilateral frontal and ethmoid air cells SOFT TISSUES: No mass or hematoma. OTHER: No other significant finding. IMPRESSION: No CT evidence of acute ischemic change, acute intracranial hemorrhage mass effect or mi dline shift. Extensive small vessel ischemic change in the hemispheric white matter. EVIDENCE OF ACUTE STROKE: NO. COMMENT: Pertinent findings on the imaging study reported as a CRITICAL RESULT to Dr. Marino at12 :00 on 10/20/2017. Category of Critical Result: CT code stroke Quality ID # [id number]: Final reports with documentation of one or more dose reduction techniques (e.g., Au tomated exposure control, adjustment of the mA and/or kV according to patient size, use of iterative reconstruction technique) TECHNICAL DOCUMENTATION: JOB ID: [id number] [employer]- All Rights Reserved Reading location - IP/workstation name: [facility]
--- NOTE | 2017-10-20 12:26 | ER Document Report ---
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 During his class, he suddenly experienced difficulty getting words out. He denies any focal motor weakness. He dismissed the class and sought help from staff who brought him here. She states that the symptoms seem to have resolved while he was in triage (or shortly before triage). He denies any recent chest pain, shortness of breath, abdominal pain, illnesses. TRAVEL OUTSIDE OF THE [place] IN LAST 30 DAYS: No - HPI Onset: Just prior to arrival Onset/Duration: Sudden Quality of pain: No pain Severity: None Pain Level: Denies Associated symptoms: denies: Chest pain, Fever, Shortness of breath Exacerbated by: Denies Relieved by: Denies Similar symptoms previously: Yes - Not recent Recently seen / treated by doctor: No - Related Data Allergies/Adverse Reactions: cyclobenzaprine HCl [From Flexeril] Allergy (Verified 10/20/17 11:48) angio edema Telkfod-Hap-Jpm Reductase Inhibitor Allergy (Verified 10/20/17 11:48) intense muscle pain Sulfa (Sulfonamide Antibiotics) Allergy (Verified 10/20/17 11:48) rash Past Medical History - General Information source: Patient - Social History Smoking Status: Former Smoker Cigarette use (# per day): No - Quit 2005 Chew tobacco use (# tins/day): No Smoking Education Provided: No Frequency of alcohol use: None Drug Abuse: None Lives with: Alone Family History: Reviewed & Not Pertinent Patient has suicidal ideation: No Patient has homicidal ideation: No - Past Medical History Cardiac Medical History: Reports: Hx Hypercholesterolemia, Hx Hypertension Denies: Hx Coronary Artery Disease, Hx Heart Attack Pulmonary Medical History: Denies: Hx Asthma, Hx Bronchitis, Hx COPD, Hx Pneumonia Neurological Medical History: Denies: Hx Cerebrovascular Accident, Hx Seizures Endocrine Medical History: Reports: Hx Diabetes Mellitus Type 2 Renal/ Medical History: Reports: Hx Kidney Stones. Denies: Hx Peritoneal Dialysis GI Medical History: Denies: Hx Hepatitis, Hx Hiatal Hernia, Hx Ulcer Musculoskeltal Medical History: Reports Hx Arthritis Infectious Medical History: Denies: Hx Hepatitis Past Surgical History: Reports: Hx Orthopedic Surgery, Hx Tonsillectomy. Denies : Hx Open Heart Surgery, Hx Pacemaker - Immunizations Hx Diphtheria, Pertussis, Tetanus Vaccination: Yes Hx Pneumococcal Vaccination: 01/31/15 Review of Systems - Review of Systems Constitutional: denies: Chills, Fever EENT: No symptoms reported Cardiovascular: See HPI. denies: Chest pain, Palpitations, Dyspnea Respiratory: No symptoms reported Gastrointestinal: No symptoms reported Genitourinary: No symptoms reported Male Genitourinary: No symptoms reported Musculoskeletal: No symptoms reported Skin: No symptoms reported Hematologic/Lymphatic: No symptoms reported Neurological/Psychological: See HPI Physical Exam - Vital signs Vitals: Pulse Resp BP Pulse Ox 78 20 195/89 H 98 10/20/17 12:02 10/20/17 12:02 10/20/17 12:02 10/20/17 12:02 Notes: Physical exam: GENERAL: Alert and oriented 3, no acute distress. HEAD: Atraumatic, normocephalic. EYES: Pupils equal round and reactive to light, extraocular movements intact, sclera anicteric, conjunctiva are normal. ENT: TMs normal, nares patent, oropharynx clear without exudates. Moist mucous membranes. NECK: Normal range of motion, supple without obvious mass or JVD. LUNGS: Breath sounds clear to auscultation bilaterally and equal. No wheezes rales or rhonchi. HEART: Regular rate and rhythm without murmurs, rubs or gallops. ABDOMEN: Soft, normoactive bowel sounds. No tenderness to palpation. No guarding, no rebound. No masses appreciated. EXTREMITIES: Normal range of motion. She does have chronic left lower extremity lymphedema. There is no calf tenderness or erythema. Good cap refill. No clubbing or cyanosis. NEUROLOGICAL: Cranial nerves II through XII grossly intact. Normal speech, moving all extremities. He is alert and keenly responsive, he is able to answer the month and his age correctly, he can open and close eyes and fist, his horizontal gaze is normal, his visual link are intact, there is no evidence of facial palsy, he is able to easily hold up both arms for 10 seconds without drift, he is able to hold up both legs for 5 seconds without drift, finger to nose and heel to panda are good bilaterally, sensory is grossly intact , picture description, object naming and sentence reading is good, there is no dysarthria, there is no extinction or inattention. NIH score is 0. PSYCH: Normal mood, normal affect. SKIN: Warm, Dry, normal turgor, no rashes or lesions noted. Course - Vital Signs Vital signs: Temp Pulse Resp BP Pulse Ox 78 27 H 184/85 H 95 10/20/17 12:02 10/20/17 13:47 10/20/17 13:47 10/20/17 13:47 - Laboratory Result Diagrams: 10/20/17 12:09 10/20/17 12:09 Laboratory results interpreted by me: 10/20/17 10/20/17 12:09 12:09 Hgb 12.4 L Hct 34.8 L MCV 76 L RDW 14.3 H Sodium 145.1 H Potassium 3.2 L Creatinine 2.09 H Est GFR ( Amer) 38 L Est GFR (Non-Af Amer) 31 L Glucose 216 H ALT 20 L - Diagnostic Test Radiology reviewed: Image reviewed, Reports reviewed - X-ray shows no obvious infiltrate. CT reported as negative - EKG Interpretation by Me Rate: Normal Rhythm: NSR - EKG shows normal sinus rhythm with a ventricular rate of 74, no acute ST-T wave changes Discharge - Discharge Clinical Impression: TIA, Uncontrolled hypertension Condition: Stable Disposition: ADMITTED INPATIENT Admitting Provider: Hospitalist - Dr Ferris Unit Admitted: Telemetry Referrals: YOSEF CARDENAS MD [ACTIVE STAFF] - Follow up as needed
[2017-10-20 12:31] LABS: ABSOLUTE BASOPHILS # (AUTO) 0.1 10^3/uL (0.0-0.2); ABSOLUTE EOSINOPHILS # (AUTO) 0.3 10^3/uL (0.0-0.6); ABSOLUTE LYMPHOCYTES (AUTO) 1.3 10^3/uL (0.5-4.7); ABSOLUTE MONOCYTES (AUTO) 0.3 10^3/uL (0.1-1.4); ABSOLUTE NEUT (AUTO) 4.4 10^3/uL (1.7-8.2); BASOPHILS % (AUTO) 1.1 % (0-2); EOSINOPHILS % (AUTO) 4.5 % (0-6); HEMATOCRIT 34.8 % (37.9-51.0); HEMOGLOBIN 12.4 g/dL (13.5-17.0); MEAN CORPUSCULAR HEMOGLOBIN 27.1 pg (27.0-33.4); MEAN CORPUSCULAR HGB CONC 35.6 g/dL (32.0-36.0); MEAN CORPUSCULAR VOLUME 76 fl (80-97); MONOCYTES % (AUTO) 4.7 % (3-13); PLATELET COUNT 187 10^3/uL (150-450); RED BLOOD COUNT 4.58 10^6/uL (4.35-5.55); RED CELL DISTRIBUTION WIDTH 14.3 % (11.5-14.0); SEGMENTED NEUTROPHILS % (AUTO) 68.7 % (42-78); TOTAL CELLS COUNTED % (AUTO) 100 %; WHITE BLOOD COUNT 6.4 10^3/uL (4.0-10.5)
[2017-10-20 12:36] LABS: PARTIAL THROMBOPLASTIN TIME 32.9 SEC (23.5-35.8)
[2017-10-20 12:39] LABS: PROTHROMBIN TIME 13.7 SEC (11.4-15.4)
[2017-10-20 12:40] LABS: ALANINE AMINOTRANSFERASE 20 U/L (21-72); ALBUMIN 3.7 g/dL (3.5-5.0); ALKALINE PHOSPHATASE 61 U/L (38-126); ANION GAP 12 (5-19); ASPARTATE AMINO TRANSFERASE 31 U/L (17-59); BILIRUBIN,DIRECT 0.3 mg/dL (0.0-0.4); BILIRUBIN,TOTAL 0.6 mg/dL (0.2-1.3); BLOOD UREA NITROGEN 10 mg/dL (7-20); CALCIUM 9.3 mg/dL (8.4-10.2); CARBON DIOXIDE 29 mmol/L (22-30); CHLORIDE 104 mmol/L (98-107); CREATINE KINASE 147 U/L (55-170); GLUCOSE 216 mg/dL (75-110); POTASSIUM 3.2 mmol/L (3.6-5.0); SODIUM 145.1 mmol/L (137-145); TOTAL PROTEIN 6.6 g/dL (6.3-8.2)
--- NOTE | 2017-10-20 12:40 | RADIOLOGY REPORT (SQ) ---
EXAM DESCRIPTION: CHEST SINGLE VIEW COMPLETED DATE/TIME: 10/20/2017 12:11 pm REASON FOR STUDY: Stroke alert COMPARISON: 08/30/2016 EXAM PARAMETERS: NUMBER OF VIEWS: One view. TECHNIQUE: Single frontal radiographic view of the chest acquired. RADIATION DOSE: NA LIMITATIONS: None. FINDINGS: LUNGS AND PLEURA: No opacities, masses or pneumothorax. No pleural effusion. MEDIASTINUM AND HILAR STRUCTURES: No masses. Contour normal. HEART AND VASCULAR STRUCTURES: Heart normal in size. Normal vasculature. BONES: No acute findings. HARDWARE: None in the chest. OTHER: No other significant finding. IMPRESSION: NO ACUTE RADIOGRAPHIC FINDING IN THE CHEST. TECHNICAL DOCUMENTATION: JOB ID: [id number] [employer]- All Rights Reserved Reading location - IP/workstation name: [email or web address]
--- NOTE | 2017-10-20 12:42 | ER Document Report ---
ED General - General Chief Complaint: Altered Mental Status Stated Complaint: ALTERED MENTAL STATUS Time Seen by Provider: 10/20/17 12:05 Mode of Arrival: Wheelchair Information source: Patient TRAVEL OUTSIDE OF THE [place] IN LAST 30 DAYS: No - Related Data Allergies/Adverse Reactions: cyclobenzaprine HCl [From Flexeril] Allergy (Verified 10/20/17 11:48) angio edema Wyypakp-Nro-Rmp Reductase Inhibitor Allergy (Verified 10/20/17 11:48) intense muscle pain Sulfa (Sulfonamide Antibiotics) Allergy (Verified 10/20/17 11:48) rash Past Medical History - Social History Family History: Reviewed & Not Pertinent - Past Medical History Cardiac Medical History: Reports: Hx Hypercholesterolemia, Hx Hypertension Denies: Hx Coronary Artery Disease, Hx Heart Attack Pulmonary Medical History: Denies: Hx Asthma, Hx Bronchitis, Hx COPD, Hx Pneumonia Neurological Medical History: Denies: Hx Cerebrovascular Accident, Hx Seizures Endocrine Medical History: Reports: Hx Diabetes Mellitus Type 2 Renal/ Medical History: Reports: Hx Kidney Stones. Denies: Hx Peritoneal Dialysis GI Medical History: Denies: Hx Hepatitis, Hx Hiatal Hernia, Hx Ulcer Musculoskeltal Medical History: Reports Hx Arthritis Infectious Medical History: Denies: Hx Hepatitis Past Surgical History: Reports: Hx Orthopedic Surgery, Hx Tonsillectomy. Denies : Hx Open Heart Surgery, Hx Pacemaker - Immunizations Hx Diphtheria, Pertussis, Tetanus Vaccination: Yes Hx Pneumococcal Vaccination: 01/31/15 Physical Exam - Vital signs Vitals: Pulse Ox 96 10/20/17 12:21 Course - Vital Signs Vital signs: Temp Pulse Resp BP Pulse Ox 96 10/20/17 12:21 - Laboratory Result Diagrams: 10/20/17 12:09 10/20/17 12:09 Discharge - Discharge Referrals: YOSEF CARDENAS MD [Primary Care Provider] - Follow up as needed
[2017-10-20 12:53] LABS: CREATINE KINASE MB 1.52 ng/mL (<4.55)
[2017-10-20 12:54] LABS: TROPONIN I < 0.012 ng/mL
[2017-10-20] MEDS ORDERED: POTASSIUM CHLORIDE 10 MEQ TABLET.SA PO ONE (14:03)
[2017-10-20] MEDS ORDERED: ACETAMINOPHEN 325 MG TABLET PO PRN (15:18)
[2017-10-20] MEDS ORDERED: ASPIRIN 325 MG TABLET PO SCH (16:00)
--- NOTE | 2017-10-20 16:20 | PDOC H&P ---
History of Present Illness Admission Date/PCP: 10/20/17 14:14 ADALID WHITNEY MD Patient complains of: AMS History of Present Illness: JARED NEGRETE is a 71 year old male history of hypertension, diabetes mellitus. Reports possible history of TIA in the past. 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 States he couldn't get the words out coherently. He denies lower extremity weakness. He dismissed his class and was brought to the ED. Head CT was negative. Patient was referred to the hospitalist service for admission When I saw patient, he denied chest pain, no palpitations. Stated he feels he is at baseline. Denies headache. 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 Past Medical History Cardiac Medical History: Reports: Hyperlipidema, Hypertension Denies: Coronary Artery Disease, Myocardial Infarction Pulmonary Medical History: Denies: Asthma, Bronchitis, Chronic Obstructive Pulmonary Disease (COPD), Pneumonia Neurological Medical History: Denies: Seizures Endocrine Medical History: Reports: Diabetes Mellitus Type 2 GI Medical History: Denies: Hepatitis, Hiatal Hernia Musculoskeltal Medical History: Reports: Arthritis Hematology: Reports: Anemia - slight taking vitamins Denies: Sickle Cell Disease Past Surgical History Past Surgical History: Reports: Orthopedic Surgery, Tonsillectomy Denies: Pacemaker Social History Information Source: Patient Lives with: Alone Smoking Status: Former Smoker Hx Prescription Drug Abuse: No Family History Family History: Reviewed & Not Pertinent Parental Family History Reviewed: Yes Children Family History Reviewed: Yes Sibling(s) Family History Reviewed.: Yes Medication/Allergy Allergies/Adverse Reactions: cyclobenzaprine HCl [From Flexeril] Allergy (Verified 10/20/17 11:48) angio edema Gsxrdlk-Oap-Prk Reductase Inhibitor Allergy (Verified 10/20/17 11:48) intense muscle pain Sulfa (Sulfonamide Antibiotics) Allergy (Verified 10/20/17 11:48) rash Review of Systems Review of Systems: CONSTITUTIONAL : Fever, chills -- No; unexpalined fatigue -- No EENT: Denies eye, ear, throat, or mouth pain or symptoms. Denies nasal or sinus congestion or discharge. Denies throat, tongue, or mouth swelling or difficulty swallowing. CARDIOVASCULAR: Denies chest pain. No racing heart RESPIRATORY: Denies cough, no shortness of breath, difficulty breathing. GASTROINTESTINAL: Denies abdominal pain or distention. Denies nausea, vomiting , or diarrhea. No rectal bleeding. GENITOURINARY: Urinary symptoms -- no. MUSCULOSKELETAL: No acute weakness SKIN: Denies rash, lesions or sores. HEMATOLOGIC : Denies easy bruising or bleeding. LYMPHATIC: Denies swollen, enlarged glands. NEUROLOGICAL: As in HPI. New weakness, headaches, slured speach - No PSYCHIATRIC: Changes anxiety or stress, depression, suicidal ideation, or homicidal ideation -- No ALL OTHER SYSTEMS REVIEWED AND NEGATIVE. Physical Exam Vital Signs: Temp Pulse Resp BP Pulse Ox 78 27 H 184/85 H 95 10/20/17 12:02 10/20/17 13:47 10/20/17 13:47 10/20/17 13:47 GENERAL: Well-developed, no acute distress HEENT: Normocephalic/atraumatic NECK supple, no JVD CARDIOVASCULAR: RRR, normal S1-S2 LUNGS: CTA bilaterally ABDOMEN: Soft, NT, NL bowel sounds EXTREMITIES: No edema, clubbing, cyanosis NEUROLOGICAL: Alert, oriented x 3, no lateralizing weakness Results Impressions: Head CT 10/20/17 00:00 IMPRESSION: No CT evidence of acute ischemic change, acute intracranial hemorrhage mass effect or midline shift. Extensive small vessel ischemic change in the hemispheric white matter. EVIDENCE OF ACUTE STROKE: NO. Chest X-Ray 10/20/17 11:51 IMPRESSION: NO ACUTE RADIOGRAPHIC FINDING IN THE CHEST. Assessment & Plan - Diagnosis (1) TIA (transient ischemic attack) Is this a current diagnosis for this admission?: Yes Plan: We will admit patient to 24 hours observation. We will treat with aspirin. Will check head MRI/MRA, carotid Dopplers, echocardiogram. Patient states he is allergic to statins. Check lipids in a.m. (2) Diabetes mellitus Qualifiers: Diabetes mellitus type: type 2 Is this a current diagnosis for this admission?: Yes Plan: We will continue home meds. Accu-Cheks with sliding scale insulin coverage. (3) Hypertension Qualifiers: Hypertension type: essential hypertension Qualified Code(s): I10 - Essential (primary) hypertension Is this a current diagnosis for this admission?: Yes Plan: Continue home medications. (4) Osteoarthritis Is this a current diagnosis for this admission?: Yes Plan: Continue home meds and monitor.
[2017-10-20] MEDS ORDERED: ENOXAPARIN SODIUM INJ 40 MG/0.4 ML DISP.SYRIN SUBCUT ONE (16:30)
[2017-10-20] MEDS ORDERED: ASPIRIN 325 MG TABLET, ENT COATED PO ONE (17:00)
--- NOTE | 2017-10-20 18:25 | RADIOLOGY REPORT (SQ) ---
EXAM DESCRIPTION: MRA HEAD WITHOUT COMPLETED DATE/TIME: 10/20/2017 6:04 pm REASON FOR STUDY: TIA G45.9 TRANSIENT CEREBRAL ISCHEMIC ATTACK, UNSPECIFIED COMPARISON: None. TECHNIQUE: Axial 3-D cpst-qb-wgmliv acquisition imaging performed through the brain in the area of t he [place] of [place]. Images reformatted using 3-D MIPS. LIMITATIONS: None. FINDINGS: SOURCE IMAGES: No unexpected findings on source images. No large masses. 3-D MIP: No aneurysm. No occlusions. There appears to be a stenosis of the right middle cerebral ar rip. OTHER: No other significant finding. 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 No other sign ificant findings. TECHNICAL DOCUMENTATION: JOB ID: [id number] [employer]- All Rights Reserved Reading location - IP/workstation name: [email or web address]
--- NOTE | 2017-10-20 18:29 | XCELERA REPORT ---
[address] [address] Transthoracic Echocardiogram Report Name: JARED NEGRETE Age: 71 yrs Gender: Male : 1945 Patient Status: Inpatient Patient Location: [place] [address]^A Study Date: 10/20/2017 04:25 PM Height: 75 in Weight: 190 lb BSA: 2.1 m2 Procedure: A complete two-dimensional transthoracic echocardiogram was performed (2D, M-mode, spectral and color flow Doppler). The study was technically adequate with some images being suboptimal in quality. Reason For Study: TIA Ordering Physician: MICHAELLE MORTON Performed By: Walt Mcpherson Interpretation Summary The left ventricular ejection fraction is normal. Doppler measurements suggest pseudonormalized left ventricular relaxation, which is associated with grade II/IV or mild to moderate diastolic dysfunction There is borderline concentric left ventricular hypertrophy. The right ventricular systolic function is normal. There is no mitral valve stenosis. There is a trace amount of mitral regurgitation There is no aortic valve stenosis No aortic regurgitation is present. There is no tricuspid stenosis. No tricuspid regurgitation. There is no pericardial effusion. No definite cardiac source of CVA/TIA noted on this particular trans- thoracic study. Consider IISDRO if clinically indicated. May consider mobile cardiac telemetry monitoring (MCT) for ruling out transient AFIB. MMode/2D Measurements & Calculations RVDd: 3.1 cm LVIDd: 4.5 cm FS: 44.2 % Ao root diam: 3.4 cm IVSd: 0.88 cm LVIDs: 2.5 cm EDV(Teich): 90.4 ml LVPWd: 0.81 cmESV(Teich): 22.1 ml Ao root area: 9.1 cm2 EF(Teich): 75.6 % LA dimension: 3.5 cm LVOT diam: 2.2 cm LVOT area: 4.0 cm2 Doppler Measurements & Calculations MV E max ernie: MV P1/2t max ernie: Ao V2 max: LV V1 max P.0 cm/sec 88.7 cm/sec 158.8 cm/sec 4.3 mmHg MV A max ernie: MV P1/2t: 48.4 msec Ao max PG: LV V1 max: 128.3 cm/sec MVA(P1/2t): 4.5 cm2 10.1 mmHg 104.2 cm/sec MV E/A: 0.71 MV dec slope: MILADIS(V,D): 2.6 cm2 536.4 cm/sec2 MV dec time: 0.21 sec PA V2 max: 96.0 cm/sec PA max P.7 mmHg Left Ventricle The left ventricle is grossly normal size. There is borderline concentric left ventricular hypertrophy. The left ventricular ejection fraction is normal. Doppler measurements suggest pseudonormalized left ventricular relaxation, which is associated with grade II/IV or mild to moderate diastolic dysfunction. Wall motion cannot be accurately commented on, but no definite regional wall motion abnormalities noted. Right Ventricle The right ventricle is grossly normal size. There is normal right ventricular wall thickness. The right ventricular systolic function is normal. Atria The right atrium is normal. The left atrial size is normal. Interarterial septum not well visualized and not well dopplered. Cannot comment on ASD/PFO presence. Mitral Valve The mitral valve is grossly normal. There is no mitral valve stenosis. There is a trace amount of mitral regurgitation. Aortic Valve The aortic valve is grossly normal. There is no aortic valve stenosis. No aortic regurgitation is present. Tricuspid Valve The tricuspid valve is not well visualized, but is grossly normal. There is no tricuspid stenosis. No tricuspid regurgitation. Pulmonic Valve The pulmonic valve is not well visualized. Great Vessels The aortic root is not well visualized. The inferior vena cava appeared normal and decreased > 50% with respiration (RAP 5-10 mmHg). Effusions There is no pericardial effusion. Incidental Findings No definite cardiac source of CVA/TIA noted on this particular trans- thoracic study. Consider ISIDRO if clinically indicated. May consider mobile cardiac telemetry monitoring (MCT) for ruling out transient AFIB. : MICHAELLE MORTON > Ramona Rogers
--- NOTE | 2017-10-20 18:30 | RADIOLOGY REPORT (SQ) ---
EXAM DESCRIPTION: MRI HEAD WITHOUT COMPLETED DATE/TIME: 10/20/2017 6:09 pm REASON FOR STUDY: TIA G45.9 TRANSIENT CEREBRAL ISCHEMIC ATTACK, UNSPECIFIED COMPARISON: Brain CT scan dated 10/20/2017 TECHNIQUE: Multiplanar imaging includes non-contrasted T1, T2, FLAIR, and diffusion with ADC map seq uences. Images stored on PACS. LIMITATIONS: None. FINDINGS: ANATOMY: No anomalies. Normal vascular flow voids. Pituitary fossa normal. CSF SPACES: Atrophy induced prominence of ventricles and CSF spaces. CEREBRUM: High signal intensity lesions scattered throughout the white matter on FLAIR imaging with d istribution suggesting micro-vascular ischemic changes. No evidence of hemorrhage, mass, or extraaxi al fluid collection. POSTERIOR FOSSA: No signal alteration. No hemorrhage. No edema, masses or mass effect. Internal juan pablo tory canals, cerebello-pontine angles, mastoids normal. DIFFUSION IMAGING: Negative for acute or sub-acute infarction. ORBITS: No masses. Globes normal. PARANASAL SINUSES: No fluid levels. Mucosa normal. OTHER: No other significant finding. IMPRESSION: ATROPHY AND CHRONIC MICRO-VASCULAR ISCHEMIC CHANGES. OTHERWISE NORMAL MRI OF THE BRAIN W ITHOUT INTRAVENOUS GADOLINIUM CONTRAST. EVIDENCE OF ACUTE STROKE: NO. TECHNICAL DOCUMENTATION: JOB ID: [id number] [employer]- All Rights Reserved Reading location - IP/workstation name: [email or web address]
[2017-10-20] MEDS ORDERED: ERGOCALCIFEROL (VITAMIN D2) 50000 UNIT (1.25 MG) CAPSULE PO SCH (22:00)
[2017-10-20] MEDS ORDERED: ATORVASTATIN CALCIUM 10 MG TABLET PO SCH (22:00)
--- NOTE | 2017-10-20 22:25 | EKG REPORT ---
SEVERITY:- ABNORMAL ECG - SINUS RHYTHM FIRST DEGREE AV BLOCK LOW VOLTAGE IN FRONTAL LEADS NONSPECIFIC T ABNORMALITIES, LATERAL LEADS NONSPECIFIC ST-T CHANGES : Confirmed by: Ramona Rogers 20-Oct-2017 22:23:51
[2017-10-21 05:17] LABS: HEMATOCRIT 33.1 % (37.9-51.0); HEMOGLOBIN 11.8 g/dL (13.5-17.0); MEAN CORPUSCULAR HGB CONC 35.7 g/dL (32.0-36.0); MEAN CORPUSCULAR VOLUME 76 fl (80-97); PLATELET COUNT 173 10^3/uL (150-450); RED BLOOD COUNT 4.37 10^6/uL (4.35-5.55); RED CELL DISTRIBUTION WIDTH 14.2 % (11.5-14.0); WHITE BLOOD COUNT 6.4 10^3/uL (4.0-10.5)
[2017-10-21 05:29] LABS: ANION GAP 9 (5-19); BLOOD UREA NITROGEN 11 mg/dL (7-20); CARBON DIOXIDE 29 mmol/L (22-30); CHLORIDE 107 mmol/L (98-107); CHOLESTEROL 189.28 mg/dL (0-200); GLUCOSE 94 mg/dL (75-110); POTASSIUM 3.1 mmol/L (3.6-5.0); SODIUM 145.2 mmol/L (137-145); TRIGLYCERIDES 281 mg/dL (<150)
[2017-10-21 05:40] LABS: DIRECT LDL 125 mg/dL (<100)
[2017-10-21 05:41] LABS: VLDL CHOLESTEROL 56.2 mg/dL (10-31)
[2017-10-21] MEDS ORDERED: LANSOPRAZOLE 15 MG TAB.RAP.DR PO SCH (06:00)
[2017-10-21] MEDS ORDERED: POTASSI CL 20 MEQ/50 ML RIDER 20 MEQ/50 ML RTUPB IV ONE (07:31)
[2017-10-21] MEDS ORDERED: GLIPIZIDE XL 5 MG TAB.ER.24 PO SCH (08:00)
[2017-10-21] MEDS ORDERED: (PENDING PHARMACY ID) (Potassium Chloride [Potassium Chloride] 40 MEQ) PO SCH (10:00)
[2017-10-21] MEDS ORDERED: FEBUXOSTAT 40 MG TABLET PO SCH (10:00)
[2017-10-21] MEDS ORDERED: FINASTERIDE 5 MG TABLET PO SCH (10:00)
[2017-10-21] MEDS ORDERED: (PENDING PHARMACY ID) (Nebivolol Hcl [Bystolic] 20 MG) PO SCH (10:00)
[2017-10-21] MEDS ORDERED: AMLODIPINE BESYLATE 10 MG TABLET PO SCH (10:00)
[2017-10-21] MEDS ORDERED: DOXAZOSIN MESYLATE 2 MG TABLET PO SCH (10:00)
[2017-10-21] MEDS ORDERED: ASPIRIN 81 MG TABLET, ENT COATED PO SCH ×2 (10:00)
[2017-10-21] MEDS ORDERED: NEBIVOLOL HCL 10 MG TABLET PO SCH (10:00)
[2017-10-21] MEDS ORDERED: SITAGLIPTIN PHOSPHATE 50 MG TABLET PO SCH (10:00)
[2017-10-21] MEDS ORDERED: ASPIRIN 325 MG TABLET, ENT COATED PO SCH (10:00)
[2017-10-21] MEDS ORDERED: (PENDING PHARMACY ID) (Linagliptin [Tradjenta] 5 MG) PO SCH (10:00)
[2017-10-21] MEDS ORDERED: (PENDING PHARMACY ID) (Fenofibrate,Micronized [Fenofibrate] 134 MG) PO SCH (10:00)
[2017-10-21] MEDS ORDERED: (PENDING PHARMACY ID) (Candesartan Cilexetil [Atacand 32 Mg Tablet] 32 MG) PO SCH (10:00)
[2017-10-21] MEDS ORDERED: FENOFIBRATE NANOCRYSTALLIZED 48 MG TABLET PO SCH (10:00)
[2017-10-21] MEDS ORDERED: LOSARTAN POTASSIUM 50 MG TABLET PO SCH (10:00)
[2017-10-21] MEDS ORDERED: POTASSIUM CHLORIDE 10 MEQ TABLET.SA PO SCH (10:00)
[2017-10-21] MEDS ORDERED: TRIAMTERENE/HYDROCHLOROTHIAZID 75-50 MG TABLET PO SCH (10:00)
[2017-10-21] MEDS ORDERED: ENOXAPARIN SODIUM INJ 40 MG/0.4 ML DISP.SYRIN SUBCUT SCH (10:00)
[2017-10-21] MEDS ORDERED: (PENDING PHARMACY ID) (Rosuvastatin Calcium [Crestor 5 Mg Tablet] 5 MG) PO SCH (10:00)
[2017-10-21] MEDS ORDERED: ONDANSETRON HCL INJ/PF 4 MG/2 ML SDV ONE (10:28)
[2017-10-21] MEDS ORDERED: ONDANSETRON HCL INJ/PF 4 MG/2 ML SDV IV PRN (10:29)
[2017-10-21 13:09] LABS: ANION GAP 10 (5-19); BLOOD UREA NITROGEN 12 mg/dL (7-20); CALCIUM 9.3 mg/dL (8.4-10.2); CARBON DIOXIDE 29 mmol/L (22-30); CHLORIDE 104 mmol/L (98-107); GLUCOSE 159 mg/dL (75-110); POTASSIUM 3.7 mmol/L (3.6-5.0); SODIUM 143.2 mmol/L (137-145)
[2017-10-21 15:08] VITALS: BP 178/81
--- NOTE | 2017-10-21 15:24 | PDOC DISCHARGE SUMMARY ---
General - Admit/Disc Date/PCP Admission Date/Primary Care Provider: 10/20/17 14:14 ADALID WHITNEY MD Discharge Date: 10/21/17 - Discharge Diagnosis (1) TIA (transient ischemic attack) Is this a current diagnosis for this admission?: Yes (2) Diabetes mellitus Is this a current diagnosis for this admission?: Yes (3) Hypertension Is this a current diagnosis for this admission?: Yes (4) Osteoarthritis Is this a current diagnosis for this admission?: Yes (5) Hypokalemia Is this a current diagnosis for this admission?: Yes (6) CKD (chronic kidney disease) stage 3, GFR 30-59 ml/min Is this a current diagnosis for this admission?: Yes - Additional Information Resuscitation Status: Full Code Discharge Diet: As Tolerated Discharge Activity: Activity As Tolerated, Balance Activity w/Rest Prescriptions: Aspirin 81 mg PO DAILY #30 tab.chew Home Medications: Amlodipine Besylate [Norvasc 10 mg Tablet] 10 mg PO DAILY 10/20/17 Candesartan Cilexetil [Atacand 32 mg Tablet] 32 mg PO DAILY 10/20/17 Doxazosin Mesylate [Cardura 2 mg Tablet] 2 mg PO QHS 10/20/17 Ergocalciferol (Vitamin D2) [Drisdol 50,000 unit (1.25MG) Capsule] 50,000 unit PO WESA@2200 10/20/17 Febuxostat [Uloric 40 mg Tablet] 40 mg PO DAILY 10/20/17 Fenofibrate,Micronized [Fenofibrate] 134 mg PO QHS 10/20/17 Finasteride [Proscar 5 mg Tablet] 5 mg PO DAILY 10/20/17 Glipizide [Glucotrol Xl 5 mg Tab.er] 5 mg PO DAILY 10/20/17 Insulin Degludec [Tresiba Flextouch U-200] 60 units SQ DAILY 10/20/17 Linagliptin [Tradjenta] 5 mg PO DAILY 10/20/17 Nebivolol HCl [Bystolic] 20 mg PO DAILY 10/20/17 Omeprazole 20 mg PO DAILY 10/20/17 Potassium Chloride 40 meq PO DAILY 10/20/17 Rosuvastatin Calcium [Crestor 5 mg Tablet] 5 mg PO DAILY 10/20/17 Triamterene/Hydrochlorothiazid [Maxzide 75 mg-50 mg Tablet] 1 tab PO DAILY 10/20 Aspirin 81 mg PO DAILY #30 tab.chew 10/21/17 Furosemide [Lasix 20 mg Tablet] 20 mg PO ASDIR PRN 10/21/17 Glipizide [Glipizide Xl] 2.5 mg PO DAILY 10/21/17 Tamsulosin HCl [Flomax 0.4 mg Cap.sr] 0.4 mg PO DAILY 10/21/17 History of Present Illness History of Present Illness: Patient was admitted after presentation as in HPI below: "JARED NEGRETE is a 71 year old male history of hypertension, diabetes mellitus. Reports possible history of TIA in the past. 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 States he couldn't get the words out coherently. He denies lower extremity weakness. He dismissed his class and was brought to the ED. Head CT was negative. Patient was referred to the hospitalist service for admission When I saw patient, he denied chest pain, no palpitations. Stated he [now] feels he is at baseline. Denies headache. 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 He had echo done that revealed no significant abnormality. Head MRI significant for atrophic changes and extensive microvascular changes, but no acute stroke. 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 Patient was found to have hypokalemia of 3.2. He was treated with KCl 40meq po x 1 but k remained low at 3.1. He the received IV kcl and another 40eq of kcl and k now improved to 3.7. Mg is normal at 1.7. Patient on kcl at home, but states was running out and had not been compliant past few days. Of note is that his BP meds include Triamterene. I offered to change as may be responsible for his hypokalemia, but he would rather f/u with his pcp as he feels he has been stable on this meds. Carotid dopplers pending but patient requesting to go home as he has parakeets to attend to. States he had a corotid dopplers done recently with PCP Dr. Gann and wound f/u in clinic. PCP to consider checking carotid dopplers if one not done recently. DX: Suspect possible TIA. Will treat with ASA 81mg daily, given patient has CKD. PCP to change dose as may be indicated. Pt reports allergies to statins. He is to f/u with his pcp within 1 week. Physical Exam Vital Signs: Temp Pulse Resp BP Pulse Ox 97.6 F 74 16 178/81 H 100 10/21/17 15:04 10/21/17 15:04 10/21/17 15:04 10/21/17 15:04 10/21/17 15:04 Intake & Output 10/20/17 10/21/17 10/22/17 06:59 06:59 06:59 Intake Total 710 425 Balance 710 425 Weight 84.5 kg Results Laboratory Results: 10/21/17 04:20 10/21/17 12:28 10/21/17 10/21/17 10/21/17 04:20 04:20 04:20 WBC 6.4 RBC 4.37 Hgb 11.8 L Hct 33.1 L MCV 76 L MCH 27.0 MCHC 35.7 RDW 14.2 H Plt Count 173 Sodium 145.2 H Potassium 3.1 L Chloride 107 Carbon Dioxide 29 Anion Gap 9 BUN 11 Creatinine 1.89 H Est GFR ( Amer) 43 L Est GFR (Non-Af Amer) 35 L Glucose 94 Calcium 9.0 Magnesium 1.7 Triglycerides 281 H Cholesterol 189.28 LDL Cholesterol Direct 125 H VLDL Cholesterol 56.2 H HDL Cholesterol 27 L 10/21/17 12:28 WBC RBC Hgb Hct MCV MCH MCHC RDW Plt Count Sodium 143.2 Potassium 3.7 Chloride 104 Carbon Dioxide 29 Anion Gap 10 BUN 12 Creatinine 1.54 H Est GFR ( Amer) 54 L Est GFR (Non-Af Amer) 45 L Glucose 159 H Calcium 9.3 Magnesium Triglycerides Cholesterol LDL Cholesterol Direct VLDL Cholesterol HDL Cholesterol Impressions: Brain MRI with MRA 10/20/17 00:00 IMPRESSION: There appears to be a 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 No other significant findings. Head CT 10/20/17 00:00 IMPRESSION: No CT evidence of acute ischemic change, acute intracranial hemorrhage mass effect or midline shift. Extensive small vessel ischemic change in the hemispheric white matter. EVIDENCE OF ACUTE STROKE: NO. Head MRI 10/20/17 00:00 IMPRESSION: ATROPHY AND CHRONIC MICRO-VASCULAR ISCHEMIC CHANGES. OTHERWISE NORMAL MRI OF THE BRAIN WITHOUT INTRAVENOUS GADOLINIUM CONTRAST. EVIDENCE OF ACUTE STROKE: NO. Chest X-Ray 10/20/17 11:51 IMPRESSION: NO ACUTE RADIOGRAPHIC FINDING IN THE CHEST. Qualifiers - * PATIENT BEING DISCHARGED WITH ANY OF THE FOLLOWING DIAGNOSIS: No
[2017-10-22] MEDS ORDERED: GLIPIZIDE XL 2.5 MG TAB.ER.24 PO SCH (08:00)
[2017-10-22] MEDS ORDERED: INSULIN DEGLUDEC 60 UNIT SQ SCH (10:00)
[2017-10-23] MEDS ORDERED: ERGOCALCIFEROL (VITAMIN D2) 50000 UNIT (1.25 MG) CAPSULE PO SCH (22:00)
== END 2017-10-21 15:35 | disposition home or self-care (01) ==
LOC: ER 11:45 → INTOOBSV 14:14 → EH 14:14 → 3W 18:18
PROVIDERS: ADMIT Internal Medicine; ATTEND Internal Medicine
DX: G45.9 Transient cerebral ischemic attack, unspecified (principal); E11.22 Type 2 diabetes mellitus with diabetic chronic kidney disease; I12.9 Hypertensive chronic kidney disease with stage 1 through stage 4 chronic kidney disease, or unspecified chronic kidney disease; N18.3 Chronic kidney disease, stage 3 (moderate); M19.90 Unspecified osteoarthritis, unspecified site; E87.6 Hypokalemia; I89.0 Lymphedema, not elsewhere classified; E78.5 Hyperlipidemia, unspecified; Z79.899 Other long term (current) drug therapy; Z79.82 Long term (current) use of aspirin; Z79.4 Long term (current) use of insulin; Z87.891 Personal history of nicotine dependence
CPT/HCPCS: 93005; 99285; 36415 ×2; 82553; 82962 ×2; 82550; 83735; 85025; 85027; 85610; 85730; 80048; 80053; 84484; 80061; 93306; 70551; 70544; 71045; 70450; 93010; G0378 ×3; A9270 ×16; J1650 ×2; J3490 ×2; J3480

== ENCOUNTER → 2017-12-30 | Outpatient (CLI) | payer MEDICARE, OTHER ==
[2017-12-30 08:43] LABS: ABSOLUTE BASOPHILS # (AUTO) 0.1 10^3/uL (0.0-0.2); ABSOLUTE EOSINOPHILS # (AUTO) 0.3 10^3/uL (0.0-0.6); ABSOLUTE LYMPHOCYTES (AUTO) 1.3 10^3/uL (0.5-4.7); ABSOLUTE MONOCYTES (AUTO) 0.3 10^3/uL (0.1-1.4); ABSOLUTE NEUT (AUTO) 3.6 10^3/uL (1.7-8.2); BASOPHILS % (AUTO) 1.1 % (0-2); EOSINOPHILS % (AUTO) 5.7 % (0-6); HEMATOCRIT 32.7 % (37.9-51.0); HEMOGLOBIN 11.6 g/dL (13.5-17.0); LYMPHOCYTES % (AUTO) 23.6 % (13-45); MEAN CORPUSCULAR HEMOGLOBIN 27.5 pg (27.0-33.4); MEAN CORPUSCULAR HGB CONC 35.4 g/dL (32.0-36.0); MEAN CORPUSCULAR VOLUME 78 fl (80-97); MONOCYTES % (AUTO) 4.5 % (3-13); PLATELET COUNT 170 10^3/uL (150-450); RED BLOOD COUNT 4.21 10^6/uL (4.35-5.55); RED CELL DISTRIBUTION WIDTH 14.2 % (11.5-14.0); SEGMENTED NEUTROPHILS % (AUTO) 65.1 % (42-78); TOTAL CELLS COUNTED % (AUTO) 100 %; WHITE BLOOD COUNT 5.6 10^3/uL (4.0-10.5)
[2017-12-30 09:05] LABS: URINE CREATININE 119.7 mg/dL (22-328)
[2017-12-30 09:05] LABS: ANION GAP 10 (5-19); BLOOD UREA NITROGEN 12 mg/dL (7-20); CALCIUM 9.2 mg/dL (8.4-10.2); CARBON DIOXIDE 32 mmol/L (22-30); CHLORIDE 104 mmol/L (98-107); GLUCOSE 90 mg/dL (75-110); POTASSIUM 4.2 mmol/L (3.6-5.0); SODIUM 146.2 mmol/L (137-145)
[2017-12-30 10:29] LABS: UR PRO/CREAT RATIO RESULT 4.4 mg/mg (0.0-0.2); URINE PROTEIN 531.4 mg/dL (<12)
== END ==
LOC: OD 08:09
PROVIDERS: ATTEND Internal Medicine Nephrology
DX: N18.3 Chronic kidney disease, stage 3 (moderate) (principal); E55.9 Vitamin D deficiency, unspecified; D63.1 Anemia in chronic kidney disease; N25.81 Secondary hyperparathyroidism of renal origin
CPT/HCPCS: 36415; 80048; 82306; 82570; 83970; 84156; 85025

== ENCOUNTER → 2018-04-22 | Outpatient (CLI) | payer MEDICARE, OTHER ==
[2018-04-22 09:41] LABS: BLOOD UREA NITROGEN 14 mg/dL (7-20); CALCIUM 8.8 mg/dL (8.4-10.2); GLUCOSE 74 mg/dL (75-110); POTASSIUM 3.5 mmol/L (3.6-5.0)
[2018-04-22 09:47] LABS: CARBON DIOXIDE 30 mmol/L (22-30); CHLORIDE 106 mmol/L (98-107); SODIUM 140.3 mmol/L (137-145)
[2018-04-22 09:48] LABS: ANION GAP 4 (5-19)
[2018-04-22 11:28] LABS: URINE PROTEIN 1200.8 mg/dL (<12)
[2018-04-22 11:29] LABS: UR PRO/CREAT RATIO RESULT 10.4 mg/mg (0.0-0.2); URINE CREATININE 115.3 mg/dL (22-328)
== END ==
LOC: OD 07:55
PROVIDERS: ATTEND Internal Medicine Nephrology
DX: E11.22 Type 2 diabetes mellitus with diabetic chronic kidney disease (principal); N18.3 Chronic kidney disease, stage 3 (moderate); E11.29 Type 2 diabetes mellitus with other diabetic kidney complication; R80.9 Proteinuria, unspecified
CPT/HCPCS: 36415; 80048; 82570; 84156

== ENCOUNTER → 2018-05-25 | Outpatient (CLI) | payer MEDICARE, OTHER ==
[2018-05-25 08:52] LABS: BLOOD UREA NITROGEN 17 mg/dL (7-20); CALCIUM 8.6 mg/dL (8.4-10.2); GLUCOSE 97 mg/dL (75-110); POTASSIUM 3.9 mmol/L (3.6-5.0)
[2018-05-25 08:58] LABS: CARBON DIOXIDE 32 mmol/L (22-30); CHLORIDE 107 mmol/L (98-107)
[2018-05-25 09:04] LABS: ANION GAP 3 (5-19)
[2018-05-25 13:53] LABS: URINE PROTEIN 764.4 mg/dL (<12)
[2018-05-25 13:54] LABS: UR PRO/CREAT RATIO RESULT 4.7 mg/mg (0.0-0.2); URINE CREATININE 162.9 mg/dL (22-328)
== END ==
LOC: OD 08:13
PROVIDERS: ATTEND Internal Medicine Nephrology
DX: I12.9 Hypertensive chronic kidney disease with stage 1 through stage 4 chronic kidney disease, or unspecified chronic kidney disease (principal); N18.3 Chronic kidney disease, stage 3 (moderate); E11.22 Type 2 diabetes mellitus with diabetic chronic kidney disease; R80.9 Proteinuria, unspecified
CPT/HCPCS: 36415; 80048; 82570; 84156

== ENCOUNTER → 2018-08-17 | Outpatient (CLI) | payer MEDICARE, OTHER ==
--- NOTE | 2018-08-17 13:31 | RADIOLOGY REPORT (SQ) ---
EXAM DESCRIPTION: CAROTID DOPPLER COMPLETED DATE/TIME: 08/17/2018 12:09 pm REASON FOR STUDY: RETINAL ISCHEMIA H35.82 RETINAL ISCHEMIA COMPARISON: None. TECHNIQUE: Grayscale ultrasound, Doppler velocity and spectra, and color Doppler images acquired of the extra-cranial carotid and vertebral arteries. Images stored on PACS. LIMITATIONS: None. FINDINGS: RIGHT CAROTID CCA Velocities: Within normal limits. ICA Velocities Peak systolic 73 cm/s. End diastolic 20 cm/s. Proximal ICA/CCA peak systolic ratio 0.87. Normal spectral without high-grade stenosis. Scattered eccentric calcified plaque. LEFT CAROTID CCA Velocities: Within normal limits. ICA Velocities Peak systolic 97 cm/s. End diastolic 28 cm/s. Proximal ICA/CCA peak systolic ratio 1.2. Normal spectral waveform without high-grade stenosis. Scattered calcified plaque. VERTEBRAL ARTERIES: Antegrade flow. Normal waveforms. SUBCLAVIAN ARTERIES: Not imaged. OTHER: No other significant finding. IMPRESSION: Scattered plaque within the bilateral internal carotid arteries without evidence of sign ificant stenosis. COMMENT: Quality ID #[id number]: Velocity criteria are extrapolated from the diameter data as defined by t he Society of Radiologists in Ultrasound Consensus Conference. Radiology 2003: 229; 340-346. TECHNICAL DOCUMENTATION: JOB ID: [id number] [employer]- All Rights Reserved Reading location - IP/workstation name: [email or web address]
== END ==
LOC: SP 10:45
PROVIDERS: ATTEND Ophthalmology
DX: H35.82 Retinal ischemia (principal)
CPT/HCPCS: 93880

== ENCOUNTER → 2018-09-16 | Outpatient (CLI) | payer MEDICARE, OTHER ==
[2018-09-16 09:16] LABS: ABSOLUTE BASOPHILS # (AUTO) 0.1 10^3/uL (0.0-0.2); ABSOLUTE EOSINOPHILS # (AUTO) 0.4 10^3/uL (0.0-0.6); ABSOLUTE LYMPHOCYTES (AUTO) 1.4 10^3/uL (0.5-4.7); ABSOLUTE MONOCYTES (AUTO) 0.2 10^3/uL (0.1-1.4); ABSOLUTE NEUT (AUTO) 3.5 10^3/uL (1.7-8.2); BASOPHILS % (AUTO) 1.3 % (0-2); EOSINOPHILS % (AUTO) 7.3 % (0-6); HEMATOCRIT 29.2 % (37.9-51.0); HEMOGLOBIN 10.2 g/dL (13.5-17.0); LYMPHOCYTES % (AUTO) 24.3 % (13-45); MEAN CORPUSCULAR HEMOGLOBIN 28.1 pg (27.0-33.4); MEAN CORPUSCULAR HGB CONC 34.9 g/dL (32.0-36.0); MEAN CORPUSCULAR VOLUME 81 fl (80-97); MONOCYTES % (AUTO) 4.4 % (3-13); PLATELET COUNT 177 10^3/uL (150-450); RED BLOOD COUNT 3.62 10^6/uL (4.35-5.55); RED CELL DISTRIBUTION WIDTH 13.9 % (11.5-14.0); SEGMENTED NEUTROPHILS % (AUTO) 62.7 % (42-78); TOTAL CELLS COUNTED % (AUTO) 100 %; WHITE BLOOD COUNT 5.7 10^3/uL (4.0-10.5)
[2018-09-16 09:21] LABS: APPEARANCE,URINE CLEAR; BILIRUBIN,URINE NEGATIVE (NEGATIVE); COLOR,URINE YELLOW; GLUCOSE, URINE NEGATIVE (NEGATIVE); KETONES,URINE NEGATIVE (NEGATIVE); LEUKOCYTE ESTERASE,URINE NEGATIVE (NEGATIVE); NITRITE,URINE NEGATIVE (NEGATIVE); PROTEIN,URINE >=500 mg/dL (NEGATIVE); URINE SPECIFIC GRAVITY 1.015; UROBILINOGEN,URINE NEGATIVE mg/dL (<2.0)
[2018-09-16 09:43] LABS: ALBUMIN 2.6 g/dL (3.5-5.0); BLOOD UREA NITROGEN 19 mg/dL (7-20); CALCIUM 8.8 mg/dL (8.4-10.2); CARBON DIOXIDE 29 mmol/L (22-30); CHLORIDE 109 mmol/L (98-107); GLUCOSE 104 mg/dL (75-110); PHOSPHORUS 4.2 mg/dL (2.5-4.5); POTASSIUM 4.5 mmol/L (3.6-5.0)
[2018-09-16 09:45] LABS: ANION GAP 4 (5-19)
[2018-09-16 10:00] LABS: URINE CREATININE 138.7 mg/dL (22-328)
[2018-09-16 12:16] LABS: UR PRO/CREAT RATIO RESULT 11.9 mg/mg (0.0-0.2); URINE PROTEIN 1653.2 mg/dL (<12)
[2018-09-20 15:36] LABS: A/G RATIO 1.1 (0.7-1.7); ALBUMIN 2 2.6 g/dL (2.9-4.4); ALPHA-2-GLOBULIN 2 0.7 g/dL (0.4-1.0); BETA GLOBULINS 0.8 g/dL (0.7-1.3); GAMMA GLOBULIN 0.6 g/dL (0.4-1.8); GLOBULIN TOTAL 2.3 g/dL (2.2-3.9); MONOCLONAL SPIKE Not Observed g/dL (Not Observ); PROTEIN TOTAL SERUM 4.9 g/dL (6.0-8.5)
== END ==
LOC: OD 08:17
PROVIDERS: ATTEND Internal Medicine Nephrology
DX: E11.22 Type 2 diabetes mellitus with diabetic chronic kidney disease (principal); N18.3 Chronic kidney disease, stage 3 (moderate); R80.9 Proteinuria, unspecified; D64.9 Anemia, unspecified
CPT/HCPCS: 36415; 80069; 81001; 82306; 82570; 83970; 84156; 84165; 85025

== ENCOUNTER 2019-02-26 21:53 | Inpatient (IN) | payer MEDICARE, OTHER ==
[2019-02-26] MEDS ORDERED: ASPIRIN 81 MG TABLET, CHEWABLE PO ONE (22:09)
[2019-02-26] MEDS ORDERED: NITROGLYCERIN 2% OINTMENT 1 GM PACKET TP ONE (22:10)
--- NOTE | 2019-02-26 22:31 | ER Document Report ---
ED General - General Chief Complaint: Shortness Of Breath Stated Complaint: SHORTNESS OF BREATH Time Seen by Provider: 02/26/19 21:58 TRAVEL OUTSIDE OF THE [place] IN LAST 30 DAYS: No - HPI Notes: 73-year-old male end-stage renal disease on dialysis presents with dyspnea. Patient is a poor historian, sent from a longterm. Apparently woke up with dyspnea. States he was last dialyzed yesterday. There is some discrepancy as to whether he is dialyzed Wednesday and Wednesday versus Wednesday and Wednesday typically. No active chest pain. Some equivocal orthopnea. Lower extremity edema which is unknown if chronic versus acute. Cough but no fever. Moderate intensity. Gradual onset, nonradiating. No other modifying factors, no other associated symptoms, no other provocative or palliative factors. - Related Data Allergies/Adverse Reactions: cyclobenzaprine HCl [From Flexeril] Allergy (Verified 08/26/18 12:09) angio edema Smykwkj-Ztu-Gjg Reductase Inhibitor Allergy (Verified 08/26/18 12:09) intense muscle pain Sulfa (Sulfonamide Antibiotics) Allergy (Verified 08/26/18 12:09) rash Home Medications: See Medication list Past Medical History - Social History Smoking Status: Never Smoker Family History: Reviewed & Not Pertinent Patient has suicidal ideation: No Patient has homicidal ideation: No - Medical History Notes: Includes end-stage renal disease on dialysis - Past Medical History Cardiac Medical History: Reports: Hx Hypercholesterolemia, Hx Hypertension Denies: Hx Coronary Artery Disease, Hx Heart Attack Pulmonary Medical History: Denies: Hx Asthma, Hx Bronchitis, Hx COPD, Hx Pneumonia Neurological Medical History: Reports: Hx Cerebrovascular Accident. Denies: Hx Seizures Endocrine Medical History: Reports: Hx Diabetes Mellitus Type 2 Renal/ Medical History: Reports: Hx End Stage Renal Disease - M-W-Fr dialysis, Hx Kidney Stones. Denies: Hx Peritoneal Dialysis GI Medical History: Denies: Hx Hepatitis, Hx Hiatal Hernia, Hx Ulcer Musculoskeletal Medical History: Reports Hx Arthritis Infectious Medical History: Denies: Hx Hepatitis Past Surgical History: Reports: Hx Orthopedic Surgery, Hx Tonsillectomy. Denies: Hx Open Heart Surgery, Hx Pacemaker - Immunizations Hx Diphtheria, Pertussis, Tetanus Vaccination: Yes Hx Pneumococcal Vaccination: 01/31/15 Review of Systems - Review of Systems Notes: Review of systems as in the history of present illness, otherwise negative x 10 systems. Physical Exam - Vital signs Vitals: Pulse Ox 97 02/26/19 22:00 - Notes Notes: General: Well developed . Moderate respiratory distress HEENT: Normocephalic, atraumatic. Pupils equal round reactive to light. No JVD. Chest: No trauma. Respiratory: Fair air exchange, scattered crackles throughout all lung link Cardiac: Regular rhythm. No murmurs or gallops. Abdomen: Soft, benign. Nondistended. Nontender. Back: No asymmetry or gross abnormality. Motor: Grossly decreased power and tone. Neurologic: Alert, nonfocal. Cranial nerves II-12 are intact. Sensation intact. Vascular: Well perfused. Normal peripheral pulses. Skin: No petechiae or purpura. Course - Re-evaluation Re-evalutation: 02/26/19 22:30 Moderately ill-appearing 73-year-old male with signs of volume overload versus heart failure. Less likely pneumonia. Consider underlying silent ischemia. Plan proceed basic labs, EKG, x-ray, preload reduction with nitrates, although his initial rhythm appears to be sinus with PACs, he does have a history of atrial fibrillation we will monitor rate and rhythm closely. 02/27/19 02:56 Labs reviewed, CBC unremarkable, chemistries unremarkable the exception of chronic renal failure. Troponin modestly elevated. Chest x-ray shows no overt failure. Patient remains substantially hypertensive despite transdermal nitrates, is received IV labetalol and his mean arterial pressures come down nicely. He is responded exceptionally well to blood pressure control and BiPAP. Breathing much easier. This point he does not have fever, no leukocytosis, I think pneumonia is unlikely. He is responding well to treatment for hypertensive emergency. Although troponin is elevated, repeat troponin shows no substantial increase. He is been to the hospitalist service for continued evaluation and management. - Vital Signs Vital signs: Temp Pulse Resp BP Pulse Ox 14 170/82 H 100 02/27/19 02:30 02/27/19 02:30 02/27/19 02:30 - Laboratory Result Diagrams: 02/26/19 20:30 02/26/19 20:30 Laboratory results interpreted by me: 02/26/19 02/26/19 20:30 20:30 RBC 3.51 L Hgb 10.2 L Hct 30.4 L RDW 15.5 H BUN 64 H Creatinine 3.89 H Est GFR ( Amer) 18 L Est GFR (MDRD) Non-Af 15 L Glucose 123 H Total Protein 5.7 L Albumin 2.9 L - EKG Interpretation by Me EKG shows normal: Sinus rhythm, [address], Intervals, QRS Complexes - Nonspecific ST- T changes, PACs noted Critical Care Note - Critical Care Note Total time excluding time spent on procedures (mins): 35 Comments: Includes discussion the case with consultants, management of hypertensive emergency, evaluation of labs radiograph and EKGs and management of vasoactive drips Discharge - Discharge Clinical Impression: Hypertensive emergency Condition: Serious Disposition: ADMITTED INPATIENT Admitting Provider: Mayank (Hospitalist) Unit Admitted: [facility]
[2019-02-26 22:45] LABS: ABSOLUTE BASOPHILS # (AUTO) 0.1 10^3/uL (0.0-0.2); ABSOLUTE EOSINOPHILS # (AUTO) 0.3 10^3/uL (0.0-0.6); ABSOLUTE LYMPHOCYTES (AUTO) 1.4 10^3/uL (0.5-4.7); ABSOLUTE MONOCYTES (AUTO) 0.4 10^3/uL (0.1-1.4); ABSOLUTE NEUT (AUTO) 5.9 10^3/uL (1.7-8.2); BASOPHILS % (AUTO) 1.4 % (0-2); EOSINOPHILS % (AUTO) 3.8 % (0-6); HEMATOCRIT 30.4 % (37.9-51.0); HEMOGLOBIN 10.2 g/dL (13.5-17.0); LYMPHOCYTES % (AUTO) 17.1 % (13-45); MEAN CORPUSCULAR HGB CONC 33.5 g/dL (32.0-36.0); MEAN CORPUSCULAR VOLUME 87 fl (80-97); MONOCYTES % (AUTO) 4.8 % (3-13); PLATELET COUNT 220 10^3/uL (150-450); RED BLOOD COUNT 3.51 10^6/uL (4.35-5.55); RED CELL DISTRIBUTION WIDTH 15.5 % (11.5-14.0); SEGMENTED NEUTROPHILS % (AUTO) 72.9 % (42-78); TOTAL CELLS COUNTED % (AUTO) 100 %
--- NOTE | 2019-02-26 22:55 | EKG REPORT ---
SEVERITY:- ABNORMAL ECG - SINUS TACHYCARDIA VENTRICULAR PREMATURE COMPLEX LOW VOLTAGE IN FRONTAL LEADS BORDERLINE R WAVE PROGRESSION, ANTERIOR LEADS BORDERLINE T ABNORMALITIES, LATERAL LEADS : Confirmed by: Becky Nelson MD 26-Feb-2019 22:53:47
--- NOTE | 2019-02-26 22:55 | RADIOLOGY REPORT (SQ) ---
EXAM DESCRIPTION: XR CHEST 1 VIEW COMPLETED DATE/TME: 02/26/2019 22:10 CLINICAL HISTORY: 73 years, Male, Dyspnea COMPARISON: X-ray chest 10/20/2017 NUMBER OF VIEWS: TECHNIQUE: LIMITATIONS: None. FINDINGS: There is a small left pleural effusion. There is likely atelectasis and/or infiltrate at the left lung base. There is patchy right basilar atelectasis. The heart is top normal to mildly enlarged. Pulmonary vascularity appears normal. There is a large bore right-sided central venous line with its tip in the superior vena cava. IMPRESSION: Left pleural effusion. Likely atelectasis and/or infiltrate at the left lung base. copyright 2010 [employer]- All Rights Reserved
[2019-02-26 22:59] LABS: INTERNATIONAL RATION (INR) 1.18; PROTHROMBIN TIME 15.1 SEC (11.4-15.4)
[2019-02-26 23:07] LABS: ALBUMIN 2.9 g/dL (3.5-5.0); ALKALINE PHOSPHATASE 95 U/L (38-126); ANION GAP 12 (5-19); ASPARTATE AMINO TRANSFERASE 44 U/L (17-59); BILIRUBIN,DIRECT 0.4 mg/dL (0.0-0.4); BILIRUBIN,TOTAL 0.6 mg/dL (0.2-1.3); BLOOD UREA NITROGEN 64 mg/dL (7-20); CARBON DIOXIDE 22 mmol/L (22-30); CHLORIDE 106 mmol/L (98-107); GLUCOSE 123 mg/dL (75-110); POTASSIUM 4.2 mmol/L (3.6-5.0); TOTAL PROTEIN 5.7 g/dL (6.3-8.2)
[2019-02-26] MEDS ORDERED: LABETALOL HCL INJ 20 MG/4 ML DISP.SYRIN IV ONE (23:22)
[2019-02-27] MEDS ORDERED: DEXTROSE 40% GEL 15 GM TUBE PO PRN ×2 (02:43)
[2019-02-27] MEDS ORDERED: MAG HYDROX/AL HYDROX/SIMETH SUSP 30 ML UDCUP PO PRN (02:43)
[2019-02-27] MEDS ORDERED: ACETAMINOPHEN 325 MG TABLET PO PRN (02:43)
[2019-02-27] MEDS ORDERED: GLUCAGON,HUMAN RECOMB 1 MG INJ IM PRN (02:43)
[2019-02-27] MEDS ORDERED: IPRATROPIUM/ALBUTEROL 0.5-2.5 MG/3 ML AMPUL NEB PRN (02:43)
[2019-02-27] MEDS ORDERED: DEXTROSE 50%-WATER 25 GM/50 ML DISP.SYRIN IV PRN ×2 (02:43)
[2019-02-27] MEDS ORDERED: AMLODIPINE BESYLATE 10 MG TABLET PO ONE (03:00)
[2019-02-27] MEDS: METOPROLOL TARTRATE PF/INJ 5 MG/5 ML SDV IV PRN (03:00)
[2019-02-27] MEDS ORDERED: HYDRALAZINE HCL 50 MG TABLET PO ONE (03:00)
--- NOTE | 2019-02-27 04:54 | PDOC H&P ---
History of Present Illness Admission Date/PCP: 02/27/19 02:32 ADALID WHITNEY MD Patient complains of: Shortness of breath History of Present Illness: JARED NEGRETE is a 73 year old male with a past medical history of poorly controlled hypertension, TIA, oliguric end-stage renal failure on hemodialysis and possible dementia. He is a long-term [facility] resident and presents with abrupt onset of shortness of breath. In the emergency room he is found to have tachypnea, with use of accessory muscles, orthopnea and systolic pressure of 220. Labs reveal a prerenal state and an indeterminate troponin. He is started on nitro glycerin and referred to the hospitalist for admission. Patient adamantly denies chest pain and admits to feeling greatly improved. He denies knowledge of recent changes of medication regiment or diet. Past Medical History Cardiac Medical History: Reports: Hyperlipidema, Hypertension Denies: Coronary Artery Disease, Myocardial Infarction Pulmonary Medical History: Denies: Asthma, Bronchitis, Chronic Obstructive Pulmonary Disease (COPD), Pneumonia Neurological Medical History: Denies: Seizures Renal/ Medical History: Reports: End Stage Renal Disease - M-W-Fr dialysis GI Medical History: Denies: Hepatitis, Hiatal Hernia Musculoskeltal Medical History: Reports: Arthritis Hematology: Reports: Anemia - slight taking vitamins Denies: Sickle Cell Disease Past Surgical History Past Surgical History: Reports: Orthopedic Surgery, Tonsillectomy Denies: Pacemaker Social History Information Source: Patient, [facility] Records Lives with: Retirement Smoking Status: Former Smoker Pipes Per Day: 2 Number of Years Smokin Last Time Smoked: 2008 Frequency of Alcohol Use: Rare Hx Prescription Drug Abuse: No - Advance Directive Resuscitation Status: Do Not Resuscitate Family History Family History: Hypertension Parental Family History Reviewed: Yes Children Family History Reviewed: Yes Sibling(s) Family History Reviewed.: Yes Medication/Allergy Home Medications: Aspirin [Jarod Chewable Aspirin] 81 mg PO DAILY 02/26/19 Carvedilol [Coreg 6.25 mg Tablet] 6.25 mg PO Q12 02/26/19 Cholecalciferol (Vitamin D3) [Vitamin D] 50,000 unit PO ASDIR PRN 02/26/19 Cyanocobalamin (Vitamin B-12) [Vitamin B12] 5,000 mcg PO DAILY 02/26/19 Difluprednate [Durezol] 1 drop OD QHS 02/26/19 Doxazosin Mesylate [Cardura 4 mg Tablet] 4 mg PO QHS 02/26/19 Febuxostat [Uloric 40 mg Tablet] 40 mg PO DAILY 02/26/19 Fenofibrate,Micronized [Fenofibrate] 134 mg PO QHS 02/26/19 Finasteride [Proscar 5 mg Tablet] 5 mg PO DAILY 02/26/19 Hydralazine HCl [Apresoline 50 mg Tablet] 100 mg PO DAILY 02/26/19 Hydrocodone/Acetaminophen [Poneto 5-325 mg Tablet] 1 tab PO Q4H PRN 02/26/19 Multivitamin/Iron/Folic Acid [Centrum Adults Tablet] 1 each PO DAILY 02/26/19 Nepafenac [Ilevro] 1.7 ml OP DAILY 02/26/19 Omeprazole Magnesium [Prilosec Otc] 20 mg PO QAM 02/26/19 Rosuvastatin Calcium [Crestor 10 mg Tablet] 10 mg PO QHS 02/26/19 Thiamine HCl [Thiamine 100 mg Tablet] 100 mg PO DAILY 02/26/19 Allergies/Adverse Reactions: cyclobenzaprine HCl [From Flexeril] Allergy (Verified 08/26/18 12:09) angio edema Jigiprl-Lxq-Pig Reductase Inhibitor Allergy (Verified 08/26/18 12:09) intense muscle pain Sulfa (Sulfonamide Antibiotics) Allergy (Verified 08/26/18 12:09) rash Review of Systems Constitutional: ABSENT: chills, fever(s), headache(s), weight gain, weight loss Eyes: ABSENT: visual disturbances Ears: ABSENT: hearing changes Cardiovascular: ABSENT: chest pain, dyspnea on exertion, edema, orthropnea, palpitations Respiratory: ABSENT: cough, hemoptysis Gastrointestinal: ABSENT: abdominal pain, constipation, diarrhea, hematemesis, hematochezia, nausea, vomiting Genitourinary: ABSENT: dysuria, hematuria Musculoskeletal: ABSENT: joint swelling Integumentary: ABSENT: rash, wounds Neurological: ABSENT: abnormal gait, abnormal speech, confusion, dizziness, focal weakness, syncope Psychiatric: ABSENT: anxiety, depression, homidical ideation, suicidal ideation Endocrine: ABSENT: cold intolerance, heat intolerance, polydipsia, polyuria Hematologic/Lymphatic: ABSENT: easy bleeding, easy bruising Physical Exam Vital Signs: Temp Pulse Resp BP Pulse Ox 97.7 F 82 18 161/77 H 96 02/27/19 04:24 02/27/19 04:24 02/27/19 04:24 02/27/19 04:24 02/27/19 04:24 Intake & Output 02/25/19 02/26/19 02/27/19 11:59 11:59 11:59 Weight 74.6 kg General appearance: PRESENT: no acute distress, cooperative, well-developed, well-nourished Head exam: PRESENT: atraumatic, normocephalic Eye exam: PRESENT: conjunctiva pink, EOMI, PERRLA. ABSENT: scleral icterus Ear exam: PRESENT: normal external ear exam Mouth exam: PRESENT: moist, tongue midline Neck exam: ABSENT: carotid bruit, JVD, lymphadenopathy, thyromegaly Respiratory exam: PRESENT: clear to auscultation livier. ABSENT: rales, rhonchi, wheezes Cardiovascular exam: PRESENT: RRR, +S2. ABSENT: diastolic murmur, rubs, systolic murmur Pulses: PRESENT: normal dorsalis pedis pul Vascular exam: PRESENT: normal capillary refill GI/Abdominal exam: PRESENT: normal bowel sounds, soft. ABSENT: distended, guarding, mass, organolmegaly, rebound, tenderness Rectal exam: PRESENT: deferred Extremities exam: PRESENT: full ROM. ABSENT: calf tenderness, clubbing, pedal edema Neurological exam: PRESENT: alert, awake, oriented to person, oriented to place, oriented to time, oriented to situation, CN II-XII grossly intact. ABSENT: motor sensory deficit Psychiatric exam: PRESENT: appropriate affect, normal mood. ABSENT: homicidal ideation, suicidal ideation Skin exam: PRESENT: dry, intact, warm, other - Severe hyperkeratosis of the feet bilaterally. ABSENT: cyanosis, rash Results Laboratory Results: 02/26/19 20:30 02/26/19 20:30 02/26/19 02/26/19 02/26/19 20:30 20:30 20:30 WBC 8.0 RBC 3.51 L Hgb 10.2 L Hct 30.4 L MCV 87 MCH 29.0 MCHC 33.5 RDW 15.5 H Plt Count 220 Seg Neutrophils % 72.9 Sodium 139.5 Potassium 4.2 Chloride 106 Carbon Dioxide 22 Anion Gap 12 BUN 64 H Creatinine 3.89 H Est GFR ( Amer) 18 L Glucose 123 H Calcium 9.0 Total Bilirubin 0.6 AST 44 Alkaline Phosphatase 95 Total Protein 5.7 L Albumin 2.9 L TSH 2.43 02/26/19 02/27/19 20:30 01:02 Troponin I 0.194 0.233 Impressions: Chest X-Ray 02/26/19 22:10 IMPRESSION: Left pleural effusion. Likely atelectasis and/or infiltrate at the left lung base. copyright 2011 [employer]- All Rights Reserved Assessment and Plan - Diagnosis (1) Anemia Is this a current diagnosis for this admission?: Yes Plan: Likely secondary to end-stage renal failure, follow-up anemia labs (2) Tinea pedis Is this a current diagnosis for this admission?: Yes Plan: Trial terbinafine on (3) Hypertensive emergency Is this a current diagnosis for this admission?: Yes Plan: Unclear cause no evidence for volume overload, hydralazine, Norvasc, Lopressor as needed (4) CKD (chronic kidney disease) stage 3, GFR 30-59 ml/min Is this a current diagnosis for this admission?: Yes Plan: Dialysis dependent, appears prerenal, nephrology consulted. - Time Time Spent with patient: 25-34 minutes - Inpatient Certification Medical Necessity: Need Close Monitoring Due to Risk of Patient Decompensation
[2019-02-27] MEDS ORDERED: HYDRALAZINE HCL 50 MG TABLET ONE (06:04)
[2019-02-27] MEDS: HEPARIN SOD (PORCINE) 5,000 UNIT/ML 1 ML VIAL SUBCUT SCH ×3 (06:06→21:29)
[2019-02-27] MEDS: INSULIN LISPRO 100 UNIT/ML 3 ML VIAL SUBCUT SCH ×3 (08:49→16:20)
[2019-02-27] MEDS: DOCUSATE SODIUM 100 MG CAPSULE PO SCH ×2 (10:00→17:22)
[2019-02-27] MEDS: CARVEDILOL 6.25 MG TABLET PO SCH ×2 (10:00→21:28)
[2019-02-27] MEDS: TERBINAFINE HCL 250 MG TABLET PO SCH (10:00)
[2019-02-27] MEDS: ASPIRIN 81 MG TABLET, CHEWABLE PO SCH (10:00)
--- NOTE | 2019-02-27 12:25 | PDOC CONSULTATION ---
Consultation Consult Date: 02/27/19 Provider Consulted: Jarad ROJAS Consult reason:: ESRD for hemodialysis History of Present Illness Admission Date/PCP: 02/27/19 02:32 ADALID WHITNEY MD History of Present Illness: JARED NEGRETE is a 73 year old male with a history of ESRD on hemodialysis in the background of chronic hypertension poorly controlled with other comorbidities that includes TIA , Dementia was admitted from the [facility] with a history of progressive shortness of breath. He denies significant chest pain, fever or chills. Evaluations in the ER revealed that he was in hypert ensive urgency with a systolic around 200-220 and that he had a small to moderate left pleural effusion. He was put on appropriate antihypertensive medications and has responded. Currently he is being seen while undergoing dialysis. He feels better than when he came in. Vital signs are stable. Labs and medications were reviewed. Dialysis orders were reviewed with the treating dialysis nurse. Past Medical History Cardiac Medical History: Reports: Hyperlipidemia, Hypertension-primary Denies: Coronary Artery Disease, Myocardial Infarction Pulmonary Medical History: Denies: Asthma, Bronchitis, Chronic Obstructive Pulmonary Disease (COPD), Pneumonia Neurological Medical History: Denies: Seizures Endocrine Medical History: Reports: Diabetes Mellitus Type 2 Renal/ Medical History: Reports: End Stage Renal Disease - M-W-Fr dialysis, Secondary Hyperparathyroidism GI Medical History: Denies: Hepatitis, Hiatal Hernia Musculoskeltal Medical History: Reports: Arthritis Hematology Medical History: Reports Anemia of Chronic Kidney Disease Past Surgical History Past Surgical History: Reports: Orthopedic Surgery, Tonsillectomy Denies: Pacemaker Social History Lives with: Group Home Smoking Status: Former Smoker Pipes Per Day: 2 Number of Years Smokin Last Time Smoked: 2008 Frequency of Alcohol Use: Rare Hx Prescription Drug Abuse: No - Advance Directive Resuscitation Status: Do Not Resuscitate Family History Parental Family History Reviewed: Yes - Negative for ESRD Children Family History Reviewed: No Sibling(s) Family History Reviewed.: No Medication/Allergy Home Medications: Aspirin [Ajrod Chewable Aspirin] 81 mg PO QAM 02/26/19 Carvedilol [Coreg 6.25 mg Tablet] 6.25 mg PO Q12 02/26/19 Cholecalciferol (Vitamin D3) [Vitamin D] 50,000 unit PO MOWEFR 02/26/19 Cyanocobalamin (Vitamin B-12) [Vitamin B12] 5,000 mcg PO QAM 02/26/19 Difluprednate [Durezol] 1 drop OD QHS 02/26/19 Doxazosin Mesylate [Cardura 4 mg Tablet] 4 mg PO QPM 02/26/19 Febuxostat [Uloric 40 mg Tablet] 40 mg PO QPM 02/26/19 Fenofibrate,Micronized [Fenofibrate] 134 mg PO QPM 02/26/19 Finasteride [Proscar 5 mg Tablet] 5 mg PO QPM 02/26/19 Hydralazine HCl [Apresoline 50 mg Tablet] 100 mg PO Q12 02/26/19 Multivitamin/Iron/Folic Acid [Centrum Adults Tablet] 1 each PO QAM 02/26/19 Nepafenac [Ilevro] 1 drop OD QAM 02/26/19 Rosuvastatin Calcium [Crestor 10 mg Tablet] 10 mg PO QHS 02/26/19 Amino Acids/Protein Hydrolys [Pro-Stat Awc Liquid] 30 ml PO BID 02/27/19 Hydrocodone/Acetaminophen [Vicodin 5-300 mg Tablet] 1 tab PO Q4HP PRN 02/27/19 Omeprazole 20 mg PO Q6AM 02/27/19 Allergies/Adverse Reactions: cyclobenzaprine HCl [From Flexeril] Allergy (Verified 08/26/18 12:09) angio edema Midqshj-Vvt-Hao Reductase Inhibitor Allergy (Verified 08/26/18 12:09) intense muscle pain Sulfa (Sulfonamide Antibiotics) Allergy (Verified 08/26/18 12:09) rash Review of Systems Constitutional: PRESENT: fatigue, weakness. ABSENT: anorexia, fever(s), headache(s), night sweats Ears: ABSENT: hearing changes Nose, Mouth, and Throat: ABSENT: mouth pain, sore throat Cardiovascular: PRESENT: dyspnea on exertion. ABSENT: chest pain, edema, orthropnea Gastrointestinal: ABSENT: abdominal pain, bloating, coffee ground emesis, diarrhea, dysphagia, heartburn, hematemesis, hematochezia, nausea, vomiting Genitourinary: ABSENT: difficulty urinating, dysuria, hematuria Musculoskeletal: ABSENT: deformity, joint swelling Integumentary: ABSENT: diaphoresis, lesions, pruritus, rash Neurological: ABSENT: abnormal movements, abnormal speech, confusion, focal weakness, frequent falls Endocrine: ABSENT: polydipsia Hematologic/Lymphatic: ABSENT: easy bleeding, easy bruising, lymphadenopathy Physical Exam Vital Signs: Temp Pulse Resp BP Pulse Ox 97.7 F 88 14 161/77 H 96 02/27/19 04:24 02/27/19 09:13 02/27/19 09:13 02/27/19 04:24 02/27/19 09:13 Intake & Output 02/26/19 02/27/19 02/28/19 06:59 06:59 06:59 Intake Total 240 Output Total 0 Balance 240 Weight 74.6 kg General appearance: PRESENT: no acute distress Eye exam: PRESENT: EOMI, PERRLA Ear exam: PRESENT: normal external ear exam Mouth exam: PRESENT: moist Neck exam: ABSENT: lymphadenopathy, meningismus, tenderness, thyromegaly, tracheal deviation Respiratory exam: PRESENT: clear to auscultation livier, decreased breath sounds. ABSENT: crackles Cardiovascular exam: PRESENT: +S1, +S2, systolic murmur GI/Abdominal exam: PRESENT: normal bowel sounds, soft. ABSENT: organomegaly, t enderness Extremities exam: PRESENT: +1 edema Neurological exam: PRESENT: alert, awake, oriented to person, oriented to place Psychiatric exam: PRESENT: flat affect Skin exam: ABSENT: erythema, mottled, rash Results Laboratory Results: 02/26/19 20:30 02/26/19 20:30 02/26/19 02/26/19 02/26/19 20:30 20:30 20:30 WBC 8.0 RBC 3.51 L Hgb 10.2 L Hct 30.4 L MCV 87 MCH 29.0 MCHC 33.5 RDW 15.5 H Plt Count 220 Seg Neutrophils % 72.9 Sodium 139.5 Potassium 4.2 Chloride 106 Carbon Dioxide 22 Anion Gap 12 BUN 64 H Creatinine 3.89 H Est GFR ( Amer) 18 L Glucose 123 H Calcium 9.0 Total Bilirubin 0.6 AST 44 Alkaline Phosphatase 95 Total Protein 5.7 L Albumin 2.9 L TSH 2.43 02/26/19 02/27/19 02/27/19 20:30 01:02 08:15 Troponin I 0.194 0.233 0.208 Impressions: Chest X-Ray 02/26/19 22:10 IMPRESSION: Left pleural effusion. Likely atelectasis and/or infiltrate at the left lung base. copyright 2011 [employer]- All Rights Reserved Assessment & Plan - Diagnosis (1) ESRD on hemodialysis Plan: Patient currently undergoing dialysis. Vital signs are stable. Blood pressure is better than when he came in. Dialysis is being supervised to ensure safe and smooth procedure. Plan to remove between 3 and 4 L as tolerated. Dialysis orders were reviewed with the treating dialysis nurse. (2) Anemia Is this a current diagnosis for this admission?: Yes Plan: Stable. No indications for erythropoietin currently. (3) Hypertensive emergency Is this a current diagnosis for this admission?: Yes Plan: Blood pressures in the 160 systolic range compared to 200-220 systolic when he came in. Continue present lines of management.
[2019-02-27 12:38] LABS: HEMATOCRIT 25.6 % (37.9-51.0); HEMOGLOBIN 8.5 g/dL (13.5-17.0); MEAN CORPUSCULAR HEMOGLOBIN 28.7 pg (27.0-33.4); MEAN CORPUSCULAR HGB CONC 33.2 g/dL (32.0-36.0); MEAN CORPUSCULAR VOLUME 86 fl (80-97); PLATELET COUNT 178 10^3/uL (150-450); RED BLOOD COUNT 2.96 10^6/uL (4.35-5.55); RED CELL DISTRIBUTION WIDTH 15.4 % (11.5-14.0)
[2019-02-27 13:10] LABS: ANION GAP 8 (5-19); BLOOD UREA NITROGEN 63 mg/dL (7-20); CALCIUM 8.6 mg/dL (8.4-10.2); CARBON DIOXIDE 26 mmol/L (22-30); CHLORIDE 106 mmol/L (98-107); GLUCOSE 95 mg/dL (75-110); POTASSIUM 3.9 mmol/L (3.6-5.0)
[2019-02-27] MEDS ORDERED: EPOETIN ALFA-EPBX 20,000 UNITS (ESRD) in SYRINGE SUBCUT PRN (13:41)
[2019-02-27] MEDS ORDERED: HEPARIN SOD (PORCINE) 1,000 UNIT/ML 10 ML VIAL IV PRN (14:17)
[2019-02-27] MEDS: HYDRALAZINE HCL 50 MG TABLET PO SCH ×3 (14:22→23:35)
[2019-02-28] MEDS: HYDRALAZINE HCL 50 MG TABLET PO SCH ×4 (05:19→23:19)
[2019-02-28] MEDS: HEPARIN SOD (PORCINE) 5,000 UNIT/ML 1 ML VIAL SUBCUT SCH ×3 (05:20→21:07)
[2019-02-28 05:21] LABS: HEMATOCRIT 29.7 % (37.9-51.0); MEAN CORPUSCULAR HEMOGLOBIN 28.9 pg (27.0-33.4); MEAN CORPUSCULAR HGB CONC 33.7 g/dL (32.0-36.0); MEAN CORPUSCULAR VOLUME 86 fl (80-97); PLATELET COUNT 198 10^3/uL (150-450); RED BLOOD COUNT 3.45 10^6/uL (4.35-5.55); RED CELL DISTRIBUTION WIDTH 15.5 % (11.5-14.0); WHITE BLOOD COUNT 5.9 10^3/uL (4.0-10.5)
[2019-02-28 05:41] LABS: CALCIUM 8.8 mg/dL (8.4-10.2); CARBON DIOXIDE 31 mmol/L (22-30); GLUCOSE 102 mg/dL (75-110)
[2019-02-28 05:47] LABS: ANION GAP 5 (5-19); CHLORIDE 99 mmol/L (98-107)
[2019-02-28 06:09] LABS: BLOOD UREA NITROGEN 38 mg/dL (7-20); POTASSIUM 5.1 mmol/L (3.6-5.0)
[2019-02-28] MEDS: INSULIN LISPRO 100 UNIT/ML 3 ML VIAL SUBCUT SCH ×3 (07:34→16:35)
--- NOTE | 2019-02-28 07:36 | PDOC PROGRESS REPORT ---
Subjective Progress Note for:: 02/28/19 Subjective:: 02/28/2019-no complaints this a.m. Reason For Visit: HYPERTENSIVE EMERGENCY,ESRD Physical Exam Vital Signs: Temp Pulse Resp BP Pulse Ox 97.6 F 81 18 173/79 H 96 02/28/19 03:37 02/28/19 03:37 02/28/19 03:37 02/28/19 03:37 02/28/19 03:37 Intake & Output 02/27/19 02/28/19 03/01/19 06:59 06:59 06:59 Intake Total 240 840 Output Total 0 4026 Balance 240 -3186 Weight 74.6 kg 83 kg General appearance: PRESENT: no acute distress, well-developed, well-nourished Neck exam: ABSENT: carotid bruit, JVD, lymphadenopathy, thyromegaly Respiratory exam: PRESENT: clear to auscultation livier. ABSENT: rales, rhonchi, wheezes Cardiovascular exam: PRESENT: RRR. ABSENT: diastolic murmur, rubs, systolic murmur Pulses: PRESENT: +1 pedal pulses bilateral Vascular exam: PRESENT: normal capillary refill GI/Abdominal exam: PRESENT: normal bowel sounds, soft. ABSENT: distended, guarding, mass, organolmegaly, rebound, tenderness Extremities exam: PRESENT: full ROM. ABSENT: calf tenderness, clubbing, pedal edema Neurological exam: PRESENT: alert, awake, oriented to person, oriented to place, oriented to time, oriented to situation, CN II-XII grossly intact. ABSENT: motor sensory deficit Psychiatric exam: PRESENT: appropriate affect, normal mood. ABSENT: homicidal ideation, suicidal ideation Skin exam: PRESENT: dry, intact, warm. ABSENT: cyanosis, rash Results Laboratory Results: 02/28/19 04:38 02/28/19 04:38 02/27/19 02/27/19 02/28/19 10:55 10:55 04:38 WBC 6.0 5.9 RBC 2.96 L 3.45 L Hgb 8.5 L 10.0 L Hct 25.6 L 29.7 L MCV 86 86 MCH 28.7 28.9 MCHC 33.2 33.7 RDW 15.4 H 15.5 H Plt Count 178 198 Sodium 140.1 Potassium 3.9 Chloride 106 Carbon Dioxide 26 Anion Gap 8 BUN 63 H Creatinine 3.83 H Est GFR ( Amer) 19 L Glucose 95 Calcium 8.6 02/28/19 04:38 WBC RBC Hgb Hct MCV MCH MCHC RDW Plt Count Sodium 135.4 L Potassium 5.1 H D Chloride 99 Carbon Dioxide 31 H Anion Gap 5 BUN 38 H D Creatinine 2.93 H Est GFR ( Amer) 25 L Glucose 102 Calcium 8.8 02/26/19 02/27/19 02/27/19 20:30 01:02 08:15 Troponin I 0.194 0.233 0.208 02/27/19 14:18 Troponin I 0.144 Impressions: Chest X-Ray 02/26/19 22:10 IMPRESSION: Left pleural effusion. Likely atelectasis and/or infiltrate at the left lung base. copyright 2010 [employer]- All Rights Reserved Assessment and Plan - Diagnosis (1) Anemia Is this a current diagnosis for this admission?: Yes Plan: Likely secondary to end-stage renal failure, follow-up anemia labs 02/28/2019-chronic stable continue to follow (2) Tinea pedis Is this a current diagnosis for this admission?: Yes Plan: Trial terbinafine on 02/28/2019-continue terbinafine. (3) Hypertensive emergency Is this a current diagnosis for this admission?: Yes Plan: Unclear cause no evidence for volume overload, hydralazine, Norvasc, Lopressor as needed 02/28/2018-remains high despite hydralazine, Norvasc and Coreg. I have added Cardura 1 mg p.o. daily for his alpha effects and will await and follow and make adjustment based on need. (4) CKD (chronic kidney disease) stage 3, GFR 30-59 ml/min Is this a current diagnosis for this admission?: Yes Plan: Dialysis dependent, appears prerenal, nephrology consulted. 02/28/2019-dialysis dependent underwent dialysis yesterday. We will continue to follow with nephrology - Time Time Spent with patient: 15-24 minutes - Inpatient Certification Based on my medical assessment, after consideration of the patient's comorbidities, presenting symptoms, or acuity I expect that the services needed warrant INPATIENT care.: Yes I certify that my determination is in accordance with my understanding of Medicare's requirements for reasonable and necessary INPATIENT services [42 CFR 412.3e].: Yes Medical Necessity: Significant Comorbidiites Make Outpatient Treatment Too Risky, Need Close Monitoring Due to Risk of Patient Decompensation
[2019-02-28] MEDS ORDERED: DOXAZOSIN MESYLATE 1 MG TABLET PO SCH (10:00)
[2019-02-28] MEDS: CARVEDILOL 6.25 MG TABLET PO SCH ×2 (10:18→21:07)
[2019-02-28] MEDS: AMLODIPINE BESYLATE 10 MG TABLET PO SCH (10:18)
[2019-02-28] MEDS: DOCUSATE SODIUM 100 MG CAPSULE PO SCH ×2 (10:18→18:20)
[2019-02-28] MEDS: ASPIRIN 81 MG TABLET, CHEWABLE PO SCH (10:18)
[2019-02-28] MEDS: TERBINAFINE HCL 250 MG TABLET PO SCH (10:19)
[2019-02-28] MEDS: METOPROLOL TARTRATE PF/INJ 5 MG/5 ML SDV IV PRN (21:07)
[2019-03-01] MEDS ORDERED: HEPARIN SOD (PORCINE) 1,000 UNIT/ML 10 ML VIAL IV PRN (05:00)
[2019-03-01] MEDS ORDERED: NORMAL SALINE 1000 ML 1,000 ML IV PRN (05:00)
[2019-03-01] MEDS: HYDRALAZINE HCL 50 MG TABLET PO SCH (05:25)
[2019-03-01] MEDS: HEPARIN SOD (PORCINE) 5,000 UNIT/ML 1 ML VIAL SUBCUT SCH ×3 (05:25→21:13)
[2019-03-01] MEDS: METOPROLOL TARTRATE PF/INJ 5 MG/5 ML SDV IV PRN (05:43)
[2019-03-01] MEDS: INSULIN LISPRO 100 UNIT/ML 3 ML VIAL SUBCUT SCH ×3 (08:14→16:02)
[2019-03-01 09:07] LABS: HEMATOCRIT 27.9 % (37.9-51.0); HEMOGLOBIN 9.2 g/dL (13.5-17.0); MEAN CORPUSCULAR HEMOGLOBIN 28.1 pg (27.0-33.4); MEAN CORPUSCULAR HGB CONC 32.9 g/dL (32.0-36.0); MEAN CORPUSCULAR VOLUME 86 fl (80-97); PLATELET COUNT 180 10^3/uL (150-450); RED BLOOD COUNT 3.26 10^6/uL (4.35-5.55); RED CELL DISTRIBUTION WIDTH 15.2 % (11.5-14.0); WHITE BLOOD COUNT 4.9 10^3/uL (4.0-10.5)
[2019-03-01 09:23] LABS: ANION GAP 7 (5-19); BLOOD UREA NITROGEN 46 mg/dL (7-20); CALCIUM 8.6 mg/dL (8.4-10.2); CARBON DIOXIDE 27 mmol/L (22-30); CHLORIDE 101 mmol/L (98-107); GLUCOSE 83 mg/dL (75-110); POTASSIUM 3.3 mmol/L (3.6-5.0)
[2019-03-01] MEDS ORDERED: HYDRALAZINE HCL 50 MG TABLET PO SCH (09:30)
--- NOTE | 2019-03-01 09:33 | PDOC PROGRESS REPORT ---
Subjective Progress Note for:: 03/01/19 Subjective:: 02/28/2019-no complaints this a.m. 2018-no complaints this a.m. Reason For Visit: HYPERTENSIVE EMERGENCY,ESRD Physical Exam Vital Signs: Temp Pulse Resp BP Pulse Ox 97.3 F 87 16 180/89 H 99 03/01/19 03:59 03/01/19 03:59 03/01/19 03:59 03/01/19 03:59 03/01/19 03:59 Intake & Output 02/28/19 03/01/19 03/02/19 06:59 06:59 06:59 Intake Total 840 600 Output Total 4026 75 Balance -3186 525 Weight 83 kg 83 kg General appearance: PRESENT: no acute distress, well-developed, well-nourished Neck exam: ABSENT: carotid bruit, JVD, lymphadenopathy, thyromegaly Respiratory exam: PRESENT: clear to auscultation livier. ABSENT: rales, rhonchi, wheezes Cardiovascular exam: PRESENT: RRR. ABSENT: diastolic murmur, rubs, systolic mur mur Pulses: PRESENT: +1 pedal pulses bilateral Vascular exam: PRESENT: normal capillary refill GI/Abdominal exam: PRESENT: normal bowel sounds, soft. ABSENT: distended, guarding, mass, organolmegaly, rebound, tenderness Extremities exam: PRESENT: full ROM. ABSENT: calf tenderness, clubbing, pedal edema Neurological exam: PRESENT: alert, awake, oriented to person, oriented to place, oriented to time, oriented to situation, CN II-XII grossly intact. ABSENT: motor sensory deficit Psychiatric exam: PRESENT: appropriate affect, normal mood. ABSENT: homicidal ideation, suicidal ideation Skin exam: PRESENT: dry, intact, warm. ABSENT: cyanosis, rash Results Laboratory Results: 03/01/19 07:50 03/01/19 07:50 03/01/19 03/01/19 07:50 07:50 WBC 4.9 RBC 3.26 L Hgb 9.2 L Hct 27.9 L MCV 86 MCH 28.1 MCHC 32.9 RDW 15.2 H Plt Count 180 Sodium 134.9 L Potassium 3.3 L Chloride 101 Carbon Dioxide 27 Anion Gap 7 BUN 46 H Creatinine 3.44 H Est GFR ( Amer) 21 L Glucose 83 Calcium 8.6 02/26/19 02/27/19 02/27/19 20:30 01:02 08:15 Troponin I 0.194 0.233 0.208 02/27/19 14:18 Troponin I 0.144 Impressions: Chest X-Ray 02/26/19 22:10 IMPRESSION: Left pleural effusion. Likely atelectasis and/or infiltrate at the left lung base. copyright 2010 [employer]- All Rights Reserved Assessment and Plan - Diagnosis (1) Anemia Is this a current diagnosis for this admission?: Yes Plan: Likely secondary to end-stage renal failure, follow-up anemia labs 02/28/2019-chronic stable continue to follow 03/01/2019-stable (2) Tinea pedis Is this a current diagnosis for this admission?: Yes Plan: Trial terbinafine on 02/28/2019-continue terbinafine. -continue to identify (3) Hypertensive emergency Is this a current diagnosis for this admission?: Yes Plan: Unclear cause no evidence for volume overload, hydralazine, Norvasc, Lopressor as needed 02/28/2019-remains high despite hydralazine, Norvasc and Coreg. I have added Cardura 1 mg p.o. daily for his alpha effects and will await and follow and make adjustment based on need. 03/01/2019-remains elevated at this time of increase Cardura to 4 mg p.o. daily and will increase hydralazine to 100 mg p.o. 3 times daily. We will continue to follow (4) CKD (chronic kidney disease) stage 3, GFR 30-59 ml/min Is this a current diagnosis for this admission?: Yes Plan: Dialysis dependent, appears prerenal, nephrology consulted. 02/28/2019-dialysis dependent underwent dialysis yesterday. We will continue to follow with nephrology 2018-receiving dialysis at this time - Time Time Spent with patient: 15-24 minutes - Inpatient Certification Based on my medical assessment, after consideration of the patient's comorbidities, presenting symptoms, or acuity I expect that the services needed warrant INPATIENT care.: Yes I certify that my determination is in accordance with my understanding of Medicare's requirements for reasonable and necessary INPATIENT services [42 CFR 412.3e].: Yes Medical Necessity: Significant Comorbidiites Make Outpatient Treatment Too Risky, Need Close Monitoring Due to Risk of Patient Decompensation
[2019-03-01] MEDS ORDERED: EPOETIN ALFA-EPBX 10,000 UNIT in SYRINGE, DISPOSABLE, 1 EACH IV PRN (10:17)
[2019-03-01] MEDS: DOXAZOSIN MESYLATE 4 MG TABLET PO SCH (12:21)
[2019-03-01] MEDS: ASPIRIN 81 MG TABLET, CHEWABLE PO SCH (12:21)
[2019-03-01] MEDS: TERBINAFINE HCL 250 MG TABLET PO SCH (12:22)
[2019-03-01] MEDS: DOCUSATE SODIUM 100 MG CAPSULE PO SCH ×2 (12:22→17:12)
[2019-03-01] MEDS: CARVEDILOL 6.25 MG TABLET PO SCH ×2 (12:22→21:13)
[2019-03-01] MEDS: AMLODIPINE BESYLATE 10 MG TABLET PO SCH (12:22)
--- NOTE | 2019-03-01 18:10 | PDOC PROGRESS REPORT ---
Subjective Progress Note for:: 03/01/19 Subjective:: I saw the patient during dialysis this morning. He was quite lethargic but arousable and answer very few questions with monosyllables to yes and no. He tells me that his feeling fine and goes right back to sleep. He did not verbalize any complaints. His blood sugar when checked was on the 80s. His blood pressure is now improved and acceptable. He seems to be very comfortable lying down without oxygen. He is tolerating dialysis without much problems and complaints. Reason For Visit: HYPERTENSIVE EMERGENCY,ESRD Physical Exam Vital Signs: Temp Pulse Resp BP Pulse Ox 97.3 F 87 16 180/89 H 99 03/01/19 03:59 03/01/19 03:59 03/01/19 03:59 03/01/19 03:59 03/01/19 03:59 Intake & Output 02/28/19 03/01/19 03/02/19 06:59 06:59 06:59 Intake Total 840 600 Output Total 4026 75 Balance -3186 525 Weight 83 kg 83 kg Vitals during dialysis: Blood pressure 150/100, heart rate of 82, blood flow rate of 300 mL/min and dialysate flow rate of 800 mL/min. Exam: General appearance: PRESENT: no acute distress, cooperative, well-developed, well-nourished Head exam: PRESENT: atraumatic, normocephalic Eye exam: PRESENT: conjunctiva slightly pale, PERRLA. ABSENT: scleral icterus Neck exam: ABSENT: JVD Respiratory exam: PRESENT: Normal breath sounds. ABSENT: crackles, rales, rhonchi, unlabored, wheezes Cardiovascular exam: PRESENT: Regular rate rhythm -+S1, +S2. ABSENT: diastolic murmur, systolic murmur GI/Abdominal exam: PRESENT: normal bowel sounds, soft. ABSENT: guarding, mass, tenderness Extremities exam: ABSENT: No edema Neurological exam: PRESENT: alert, awake, oriented to person, place and time. Skin exam: PRESENT: dry, warm, Cardiovascular exam: PRESENT: +S1, +S2, systolic murmur GI/Abdominal exam: PRESENT: normal bowel sounds, soft. ABSENT: organomegaly, tenderness Results Laboratory Results: 02/26/19 02/27/19 02/27/19 20:30 01:02 08:15 Troponin I 0.194 0.233 0.208 02/27/19 14:18 Troponin I 0.144 Impressions: Chest X-Ray 02/26/19 22:10 IMPRESSION: Left pleural effusion. Likely atelectasis and/or infiltrate at the left lung base. copyright 2011 [employer]- All Rights Reserved Assessment & Plan - Diagnosis (1) ESRD on hemodialysis Is this a current diagnosis for this admission?: Yes Plan: We will do dialysis today for 3 hours, using the patient's PermCath, with 2 potassium bath, blood flow rate of 300-350 mL per minute, dialysate flow rate of 600-800 mL per minute, ultrafiltration 2 to 3 L as tolerated, no heparin and Procrit with 10,000 units during dialysis intravenously. Patient will be monitored throughout dialysis treatment and adjust ultrafiltration as appropriate. (2) Anemia in chronic kidney disease (CKD) Is this a current diagnosis for this admission?: Yes Plan: Procrit will be given during dialysis. (3) Hypertension Qualifiers: Hypertension type: essential hypertension Qualified Code(s): I10 - Esse ntial (primary) hypertension Is this a current diagnosis for this admission?: Yes Plan: Continue current blood pressure medication regimen. (4) Diabetes mellitus type 2 in nonobese Is this a current diagnosis for this admission?: Yes - Time Time with patient: 15-25 minutes
[2019-03-02] MEDS: METOPROLOL TARTRATE PF/INJ 5 MG/5 ML SDV IV PRN (03:25)
[2019-03-02] MEDS: HEPARIN SOD (PORCINE) 5,000 UNIT/ML 1 ML VIAL SUBCUT SCH ×2 (05:12→13:24)
[2019-03-02 06:06] LABS: HEMATOCRIT 28.4 % (37.9-51.0); HEMOGLOBIN 9.6 g/dL (13.5-17.0); MEAN CORPUSCULAR HEMOGLOBIN 28.7 pg (27.0-33.4); MEAN CORPUSCULAR HGB CONC 33.8 g/dL (32.0-36.0); MEAN CORPUSCULAR VOLUME 85 fl (80-97); PLATELET COUNT 164 10^3/uL (150-450); RED BLOOD COUNT 3.35 10^6/uL (4.35-5.55); RED CELL DISTRIBUTION WIDTH 14.8 % (11.5-14.0); WHITE BLOOD COUNT 4.4 10^3/uL (4.0-10.5)
[2019-03-02 06:34] LABS: ANION GAP 7 (5-19); BLOOD UREA NITROGEN 27 mg/dL (7-20); CALCIUM 8.4 mg/dL (8.4-10.2); CARBON DIOXIDE 27 mmol/L (22-30); CHLORIDE 104 mmol/L (98-107); GLUCOSE 82 mg/dL (75-110); POTASSIUM 3.4 mmol/L (3.6-5.0)
[2019-03-02] MEDS: INSULIN LISPRO 100 UNIT/ML 3 ML VIAL SUBCUT SCH ×2 (08:16→12:02)
--- NOTE | 2019-03-02 08:45 | PDOC DISCHARGE SUMMARY ---
Impression - Admit/DC Date/PCP Admission Date/Primary Care Provider: 02/27/19 02:32 ADALID WHITNEY MD Discharge Date: 03/02/19 - Discharge Diagnosis (1) Anemia Is this a current diagnosis for this admission?: Yes (2) Tinea pedis Is this a current diagnosis for this admission?: Yes (3) Hypertensive emergency Is this a current diagnosis for this admission?: Yes (4) CKD (chronic kidney disease) stage 3, GFR 30-59 ml/min Is this a current diagnosis for this admission?: Yes - Additional Information Resuscitation Status: Do Not Resuscitate Discharge Diet: As Tolerated Discharge Activity: Activity As Tolerated Referrals: RICARDO RICHARD MD [NO LOCAL MD] - Follow up as needed Prescriptions: Hydralazine HCl [Apresoline 50 mg Tablet] 100 mg PO Q8HP #90 tablet Home Medications: Aspirin [Jarod Chewable Aspirin] 81 mg PO QAM 02/26/19 Carvedilol [Coreg 6.25 mg Tablet] 6.25 mg PO Q12 02/26/19 Cholecalciferol (Vitamin D3) [Vitamin D3] 50,000 unit PO MOWEFR 02/26/19 Cyanocobalamin (Vitamin B-12) [Vitamin B12] 5,000 mcg PO QAM 02/26/19 Difluprednate [Durezol] 1 drop OD QHS 02/26/19 Doxazosin Mesylate [Cardura 4 mg Tablet] 4 mg PO QPM 02/26/19 Febuxostat [Uloric 40 mg Tablet] 40 mg PO QPM 02/26/19 Fenofibrate,Micronized [Fenofibrate] 134 mg PO QPM 02/26/19 Finasteride [Proscar 5 mg Tablet] 5 mg PO QPM 02/26/19 Hydralazine HCl [Apresoline 50 mg Tablet] 100 mg PO Q12 02/26/19 Multivitamin/Iron/Folic Acid [Centrum Adults Tablet] 1 each PO QAM 02/26/19 Nepafenac [Ilevro] 1 drop OD QAM 02/26/19 Rosuvastatin Calcium [Crestor 10 mg Tablet] 10 mg PO QHS 02/26/19 Amino Acids/Protein Hydrolys [Pro-Stat Awc Liquid] 30 ml PO BID 02/27/19 Hydrocodone/Acetaminophen [Vicodin 5-300 mg Tablet] 1 tab PO Q4HP PRN 02/27/19 Omeprazole 20 mg PO Q6AM 02/27/19 Doxazosin Mesylate [Cardura 4 mg Tablet] 4 mg PO DAILY tablet 03/02/19 Hydralazine HCl [Apresoline 50 mg Tablet] 100 mg PO Q8HP #90 tablet 03/02/19 History of Present Illiness History of Present Illness: JARED NEGRETE is a 73 year old male with a history of poorly controlled hypertension, TIA, end-stage renal disease on hemodialysis and possible dementia. Hospital Course Hospital Course: Patient was admitted to [facility] from the ER with history of hypertension, TIA, end- stage renal failure on hemodialysis and possible dementia. He is a long-term correction resident presents with a abrupt onset of shortness of breath. In the emergency room is found to have tachypnea use accessory muscles orthopnea and systolic blood pressure of 220. Patient was started on nitroglycerin and referred to hospitalist for admission. Patient was placed on IMCU and over the course of his hospital stay showed improvement in his blood pressure. At this time I have increased patient's hydralazine to 100 mg 3 times daily. I will have patient follow-up with his primary care practitioner within 1 week. Patient is in agreement with plan of care. Patient was transferred to [place] at this time. Physical Exam Vital Signs: Temp Pulse Resp BP Pulse Ox 97.4 F 92 16 155/84 H 96 03/02/19 07:57 03/02/19 07:57 03/02/19 07:57 03/02/19 07:57 03/02/19 07:57 Intake & Output 03/01/19 03/02/19 03/03/19 06:59 06:59 06:59 Intake Total 600 Output Total 75 3600 Balance 525 -3600 Weight 83 kg 68.5 kg General appearance: PRESENT: no acute distress, well-developed, well-nourished Head exam: PRESENT: atraumatic, normocephalic Eye exam: PRESENT: conjunctiva pink, EOMI, PERRLA. ABSENT: scleral icterus Ear exam: PRESENT: normal external ear exam Mouth exam: PRESENT: moist, tongue midline Neck exam: ABSENT: carotid bruit, JVD, lymphadenopathy, thyromegaly Respiratory exam: PRESENT: clear to auscultation livier. ABSENT: rales, rhonchi, wheezes Cardiovascular exam: PRESENT: RRR. ABSENT: diastolic murmur, rubs, systolic murmur Pulses: PRESENT: normal dorsalis pedis pul Vascular exam: PRESENT: normal capillary refill GI/Abdominal exam: PRESENT: normal bowel sounds, soft. ABSENT: distended, guarding, mass, organolmegaly, rebound, tenderness Rectal exam: PRESENT: deferred Extremities exam: PRESENT: full ROM. ABSENT: calf tenderness, clubbing, pedal edema Neurological exam: PRESENT: alert, awake, oriented to person, oriented to place, oriented to time, oriented to situation, CN II-XII grossly intact. ABSENT: motor sensory deficit Psychiatric exam: PRESENT: appropriate affect, normal mood. ABSENT: homicidal ideation, suicidal ideation Skin exam: PRESENT: dry, intact, warm. ABSENT: cyanosis, rash Results Laboratory Results: WBC 4.4 10^3/uL (4.0-10.5) 03/02/19 05:03 RBC 3.35 10^6/uL (4.35-5.55) L 03/02/19 05:03 Hgb 9.6 g/dL (13.5-17.0) L 03/02/19 05:03 Hct 28.4 % (37.9-51.0) L 03/02/19 05:03 MCV 85 fl (80-97) 03/02/19 05:03 MCH 28.7 pg (27.0-33.4) 03/02/19 05:03 MCHC 33.8 g/dL (32.0-36.0) 03/02/19 05:03 RDW 14.8 % (11.5-14.0) H 03/02/19 05:03 Plt Count 164 10^3/uL (150-450) 03/02/19 05:03 Lymph % (Auto) 17.1 % (13-45) 02/26/19 20:30 [place] % (Auto) 4.8 % (3-13) 02/26/19 20:30 Eos % (Auto) 3.8 % (0-6) 02/26/19 20:30 Baso % (Auto) 1.4 % (0-2) 02/26/19 20:30 Absolute Neuts (auto) 5.9 10^3/uL (1.7-8.2) 02/26/19 20:30 Absolute Lymphs (auto) 1.4 10^3/uL (0.5-4.7) 02/26/19 20:30 Absolute Monos (auto) 0.4 10^3/uL (0.1-1.4) 02/26/19 20:30 Absolute Eos (auto) 0.3 10^3/uL (0.0-0.6) 02/26/19 20:30 Absolute Basos (auto) 0.1 10^3/uL (0.0-0.2) 02/26/19 20:30 Seg Neutrophils % 72.9 % (42-78) 02/26/19 20:30 PT 15.1 SEC (11.4-15.4) 02/26/19 20:30 INR 1.18 02/26/19 20:30 Sodium 137.8 mmol/L (137-145) 03/02/19 05:03 Potassium 3.4 mmol/L (3.6-5.0) L 03/02/19 05:03 Chloride 104 mmol/L (98-107) 03/02/19 05:03 Carbon Dioxide 27 mmol/L (22-30) 03/02/19 05:03 Anion Gap 7 (5-19) 03/02/19 05:03 BUN 27 mg/dL (7-20) H 03/02/19 05:03 Creatinine 2.76 mg/dL (0.52-1.25) H 03/02/19 05:03 Est GFR ( Amer) 27 (>60) L 03/02/19 05:03 Est GFR (MDRD) Non-Af 23 (>60) L 03/02/19 05:03 Glucose 82 mg/dL (75-110) 03/02/19 05:03 POC Glucose 96 mg/dL (70-110) 03/02/19 07:55 Calcium 8.4 mg/dL (8.4-10.2) 03/02/19 05:03 Total Bilirubin 0.6 mg/dL (0.2-1.3) 02/26/19 20:30 Direct Bilirubin 0.4 mg/dL (0.0-0.4) 02/26/19 20:30 Neonat Total Bilirubin Not Reportable 02/26/19 20:30 Neonat Direct Bilirubin Not Reportable 02/26/19 20:30 Neonat Indirect Bili Not Reportable 02/26/19 20:30 AST 44 U/L (17-59) 02/26/19 20:30 ALT 20 U/L (<50) 02/26/19 20:30 Alkaline Phosphatase 95 U/L (38-126) 02/26/19 20:30 Troponin I 0.144 ng/mL 02/27/19 14:18 Total Protein 5.7 g/dL (6.3-8.2) L 02/26/19 20:30 Albumin 2.9 g/dL (3.5-5.0) L 02/26/19 20:30 TSH 2.43 uIU/mL (0.47-4.68) 02/26/19 20:30 02/26/19 02/27/19 02/27/19 20:30 01:02 08:15 Troponin I 0.194 0.233 0.208 02/27/19 14:18 Troponin I 0.144 Impressions: Chest X-Ray 02/26/19 22:10 IMPRESSION: Left pleural effusion. Likely atelectasis and/or infiltrate at the left lung base. copyright 2010 [employer]- All Rights Reserved Plan Time Spent: Greater than 30 Minutes Stroke Is this a Stroke Patient?: No Acute Heart Failure - Is this a Heart Failure Patient?: No
[2019-03-02] MEDS: CARVEDILOL 6.25 MG TABLET PO SCH (09:58)
[2019-03-02] MEDS: DOCUSATE SODIUM 100 MG CAPSULE PO SCH (09:59)
[2019-03-02] MEDS: ASPIRIN 81 MG TABLET, CHEWABLE PO SCH (09:59)
[2019-03-02] MEDS: TERBINAFINE HCL 250 MG TABLET PO SCH (09:59)
[2019-03-02] MEDS: DOXAZOSIN MESYLATE 4 MG TABLET PO SCH (09:59)
[2019-03-02] MEDS: AMLODIPINE BESYLATE 10 MG TABLET PO SCH (09:59)
[2019-03-02 12:21] VITALS: BP 140/71
[2019-03-02] MEDS ORDERED: HYDRALAZINE HCL 50 MG TABLET PO SCH (14:00)
[2019-03-02] MEDS ORDERED: ACETAMINOPHEN 325 MG TABLET PO PRN (14:02)
== END 2019-03-02 15:08 | DRG 304 ==
LOC: ER 21:53 → EH 02-27 02:32 → 3N 02-27 04:11
PROVIDERS: ADMIT Internal Medicine; ATTEND Internal Medicine
PROC: 5A1D70Z Performance of Urinary Filtration, Intermittent, Less than 6 Hours Per Day (ICD-10-PCS; 2019-02-27)
PROC: 5A1D70Z Performance of Urinary Filtration, Intermittent, Less than 6 Hours Per Day (ICD-10-PCS; principal; 2019-03-01)
DX: I16.1 Hypertensive emergency (principal); N18.6 End stage renal disease; D63.1 Anemia in chronic kidney disease; E11.22 Type 2 diabetes mellitus with diabetic chronic kidney disease; I12.0 Hypertensive chronic kidney disease with stage 5 chronic kidney disease or end stage renal disease; Z99.2 Dependence on renal dialysis; Z86.73 Personal history of transient ischemic attack (TIA), and cerebral infarction without residual deficits; F03.90 Unspecified dementia, unspecified severity, without behavioral disturbance, psychotic disturbance, mood disturbance, and anxiety; E78.5 Hyperlipidemia, unspecified; M19.90 Unspecified osteoarthritis, unspecified site; Z66 Do not resuscitate; B35.3 Tinea pedis; Z87.891 Personal history of nicotine dependence; Z88.2 Allergy status to sulfonamides; Z79.82 Long term (current) use of aspirin; Z79.899 Other long term (current) drug therapy
CPT/HCPCS: 36415; 71045; 80048; 80053; 82962; 84443; 84484; 85025; 85027; 85610; 93005; 93010; 94660; 96374; 99291; J1644; J3490; Q5105

== ENCOUNTER → 2019-04-18 | Outpatient (CLI) | payer MEDICARE, OTHER ==
--- NOTE | 2019-04-18 15:33 | RADIOLOGY REPORT (SQ) ---
EXAM DESCRIPTION: VENOUS UNILATERAL UPPER COMPLETED DATE/TIME: 04/18/2019 3:08 pm REASON FOR STUDY: RIGHT UPPER ARM SWELLING R22.31 LOCALIZED SWELLING, MASS AND LUMP, RIGHT UPPER LI MB COMPARISON: None. TECHNIQUE: Dynamic and static banda scale and color images acquired of the right arm venous system. S elected spectral images acquired with additional compression and augmentation maneuvers. The contrala teral subclavian vein and internal jugular vein were also imaged. Images stored on PACS. LIMITATIONS: None. FINDINGS: INTERNAL JUGULAR VEIN: Normal phasicity, compression, augmentation. No visualized echogeni c material on banda scale. No defects on color images. Comparison opposite side normal. SUBCLAVIAN VEIN: Normal compression, augmentation. No visualized echogenic material on banda scale. No defects on color images. AXILLARY VEIN: Normal compression, augmentation. No visualized echogenic material on banda scale. No d efects on color images. BRACHIAL VEIN: Normal compression, augmentation. No visualized echogenic material on banda scale. No d efects on color images. BASILIC VEIN: Normal compression, augmentation. No visualized echogenic material on banda scale. No de fects on color images. CEPHALIC VEIN: Normal compression, augmentation. No visualized echogenic material on banda scale. No d efects on color images. OTHER: No other significant finding. CONTRALATERAL SUBCLAVIAN VEIN AND INTERNAL JUGULAR VEIN: Normal phasicity, compression and augmentation. No visualized echogenic material on banda scale. No de fects on color images. IMPRESSION: NO EVIDENCE DVT OR SVT IN THE RIGHT ARM. TECHNICAL DOCUMENTATION: JOB ID: [id number] [employer]- All Rights Reserved Reading location - IP/workstation name: [email or web address]
== END ==
LOC: SP 12:36
PROVIDERS: ATTEND Physician Assistant Medical
DX: R22.31 Localized swelling, mass and lump, right upper limb (principal)
CPT/HCPCS: 93971